=== PATIENT | male | born 1955 | race Caucasian/White ===

== ENCOUNTER 2020-12-15 14:08 | Day surgery (SDC) | payer MEDICARE, SELFPAY ==
[~2020-12-15] VITALS: Ht 188 cm; Wt 107.1 kg
[~2020-12-15 14:08] MED LIST: ESOM20 PO; OMEP40CA12 PO; Ultram50 MG PO
== END 2020-12-15 16:35 | disposition home or self-care (01) ==
LOC: ORSCSDS 14:08
PROVIDERS: Surgery
PROC: 0DJD8ZZ Inspection of Lower Intestinal Tract, Via Natural or Artificial Opening Endoscopic (ICD-10-PCS; principal; 2020-12-15 15:30)
DX: Z12.11 Encounter for screening for malignant neoplasm of colon (principal); Z86.010 Personal history of colon polyps; E78.5 Hyperlipidemia, unspecified; K21.9 Gastro-esophageal reflux disease without esophagitis; Z86.73 Personal history of transient ischemic attack (TIA), and cerebral infarction without residual deficits; Z79.82 Long term (current) use of aspirin; Z79.899 Other long term (current) drug therapy; Z87.891 Personal history of nicotine dependence
CPT/HCPCS: J2704; J7120

== ENCOUNTER 2021-03-20 17:04 | Inpatient (IN) | payer MEDICARE, OTHER ==
[~2021-03-20] VITALS: Ht 188 cm; Wt 98.4 kg
[2021-03-20 18:40] LABS: BASOPHILS ABSOLUTE AUTO 0.01 K/mm3 (0.00-0.23); BASOPHILS PERCENT AUTO 0 % (0-2); EOSINOPHILS PERCENT AUTO 0 % (0-6); Hematocrit 49.4 % (37.0-53.0); Hemoglobin 16.6 g/dL (13.5-17.5); IMMATURE GRAN ABSOLUTE AUTO 0.06 K/mm3 (0.00-0.10); IMMATURE GRAN PERCENT AUTO 1 % (0-1); LYMPHOCYTES ABSOLUTE AUTO 0.88 K/mm3 (0.84-5.20); LYMPHOCYTES PERCENT AUTO 9 % (21-46); MONOCYTES ABSOLUTE AUTO 0.76 K/mm3 (0.16-1.47); MONOCYTES PERCENT AUTO 8 % (4-13); Mean Corpuscular HGB 28.9 pg (26.0-34.0); Mean Corpuscular HGB Conc 33.6 g/dL (31.5-36.5); Mean Corpuscular Volume 86 fL (80-100); Mean Platelet Volume 10.6 fL (9.1-12.4); NEUTROPHILS ABSOLUTE AUTO 8.39 K/mm3 (1.96-9.15); NEUTROPHILS PERCENT AUTO 83 % (41-73); Platelet Count 190 K/mm3 (150-400); RDW Standard Deviation 44.5 fL (35.1-46.3); Red Blood Cell Count 5.74 M/mm3 (4.30-5.90)
[2021-03-20 19:16] LABS: Alanine Aminotransfer (ALT/SGP 33 U/L (12-78); Albumin, Blood 2.9 g/dL (3.4-5.0); Albumin/Globulin Ratio 0.6 (0.8-1.8); Alk Phos 46 U/L (50-136); Anion Gap 7 mmol/L (6-16); Aspartate Aminotrans (AST/SGOT 33 U/L (12-37); Bilirubin, Total 0.8 mg/dL (0.1-1.0); Blood Urea Nitrogen 24 mg/dL (8-24); Bun/Creatinine Ratio 17.5 (12.0-20.0); CO2, Blood 24 mmol/L (21-32); Chloride, Blood 111 mmol/L (98-108); Creatinine, Blood 1.37 mg/dL (0.60-1.20); Globulin, Blood 4.6 g/dL (2.2-4.0); Glomerular Filtration Rate 55 (60-); Glucose, Blood 114 mg/dL (70-99); Potassium, Blood 4.1 mmol/L (3.5-5.5); Sodium, Blood 142 mmol/L (136-145); Total Protein, Blood 7.5 g/dL (6.4-8.2); Troponin I <0.015 ng/mL (0.000-0.040)
[2021-03-20] MEDS ORDERED: PANTOPRAZOLE SO40 M2 PO (20:02)
[2021-03-20] MEDS ORDERED: SYMBICORT 160-4.6 GM INH (20:03)
[2021-03-20] MEDS ORDERED: ALBU90OI INH (20:04)
[2021-03-20] MEDS ORDERED: ASPI325EC PO (20:15)
[2021-03-20] MEDS ORDERED: ASCO500 PO (20:15)
[2021-03-20] MEDS ORDERED: AZIT250 PO (21:11)
[2021-03-20] MEDS ORDERED: PRED20 PO (21:12)
--- NOTE | 2021-03-20 21:41 | NUR ---
ADMITTED 65 YR OLD MALE FROM THE ED TO THE FLOOR WITH DX OF COVID 19. ED STARTED HIM ON REMDESIVIR IV. ED REPORTED PT SOB WITH EVEN LITTLE PHYSICAL EXERTION. ASSISTED FROM STRETCHER TO BED.O2 AT 4L/NC. COUGHING. PLACED IN DROPLET ISOALTION. ORIENTED TO USE OF CALL LIGHT. CALL LIGHT IN REACH
--- NOTE | 2021-03-21 01:18 | NUR ---
RESTING QUIETLY, ASYMPTOMATIC AT THIS TIME. RECEIVED TREATMENT FROM RT EARLIER. O2 CONT AT 4L/MIN PER NC. CALL LIGHT IN REACH. ISOLATION PRECAUTIONS MAINTAINED.
--- NOTE | 2021-03-21 03:05 | NUR ---
CONTINUES TO REST QUIETLY WITH O2 AT 4L/MIN PER NC. CALL LIGHT IN REACH. ISOLATION PRECAUTIONS CONTINUE
--- NOTE | 2021-03-21 03:43 | NUR ---
SHIFT SUMMARY ADMITTED EARLIER IN THE SHIFT WITH RESP FAILURE DUE TO COVID 19. RESPS CONGESTED, EASILY TIRED WITH LITTLE PHYSICAL EXERTION. O2 AT 4L/NC. TREATMENT GIVEN EARLIER BY RT, RESTING QUIETLY AT THIS TIME, SINUS JOYCE. CALL LIGHT IN REACH. HAS BEEN RESTING QUIETLY WITH FEW INTERRUPTIONS SINCE HS. HEART RATE WHEN TELE FIRST APPLIED WAS 73, BUT DURING THE NIGHT TRENDED DOWN TO LOW 50'S. NO NOTED DISTRESS AT THIS TIME. WILL CONT TO MONITOR. DROPLET ISOLATION PRECAUTIONS CONTINUE
[2021-03-21 05:03] LABS: BASOPHILS ABSOLUTE AUTO 0.02 K/mm3 (0.00-0.23); BASOPHILS PERCENT AUTO 0 % (0-2); EOSINOPHILS PERCENT AUTO 0 % (0-6); Hematocrit 46.3 % (37.0-53.0); Hemoglobin 15.8 g/dL (13.5-17.5); IMMATURE GRAN ABSOLUTE AUTO 0.06 K/mm3 (0.00-0.10); IMMATURE GRAN PERCENT AUTO 1 % (0-1); LYMPHOCYTES ABSOLUTE AUTO 0.56 K/mm3 (0.84-5.20); LYMPHOCYTES PERCENT AUTO 6 % (21-46); MONOCYTES ABSOLUTE AUTO 0.47 K/mm3 (0.16-1.47); MONOCYTES PERCENT AUTO 5 % (4-13); Mean Corpuscular HGB 28.8 pg (26.0-34.0); Mean Corpuscular HGB Conc 34.1 g/dL (31.5-36.5); Mean Corpuscular Volume 85 fL (80-100); Mean Platelet Volume 10.4 fL (9.1-12.4); NEUTROPHILS ABSOLUTE AUTO 7.72 K/mm3 (1.96-9.15); NEUTROPHILS PERCENT AUTO 88 % (41-73); Platelet Count 190 K/mm3 (150-400); RDW Coefficient Variation 13.8 % (11.7-14.2); Red Blood Cell Count 5.48 M/mm3 (4.30-5.90); White Blood Cell Count 8.83 K/mm3 (4.00-11.30)
[2021-03-21 05:33] LABS: Anion Gap 6 mmol/L (6-16); Blood Urea Nitrogen 22 mg/dL (8-24); Bun/Creatinine Ratio 19.8 (12.0-20.0); CO2, Blood 22 mmol/L (21-32); Calcium, Blood 8.4 mg/dL (8.5-10.1); Chloride, Blood 109 mmol/L (98-108); Creatinine, Blood 1.11 mg/dL (0.60-1.20); Glomerular Filtration Rate >60 (60-); Glucose, Blood 127 mg/dL (70-99); Potassium, Blood 4.4 mmol/L (3.5-5.5); Sodium, Blood 137 mmol/L (136-145)
--- NOTE | 2021-03-21 16:56 | NUR ---
PATIENT IS ALERT AND ORIENTED AND COOPERATIVE WITH CARE. HE IS ON 6L O2 VIA HIGHFLOW NC. CONTINUOUS OXIMETRY IS IN PLACE. PATIENT TRANSFERRED TO THE BATHROOM TODAY, SOB ON EXERTION. HE WAS UP TO THE CHAIR FOR LUNCH. VSS. WILL CONTINUE TO MONITOR
--- NOTE | 2021-03-21 19:59 | NUR ---
ALERT AND ORIENTED. LUNG SOUNDS CONGESTED. DIMINISHED TO AUSCULTATION. SAUD LOSS OF FEELING. HOB AT 50 DEGREES. O2 PER NC AT 6L/MIN. ISOLATION PRECAUTIONS MAINTAINED. CALL LIGHT IN REACH
--- NOTE | 2021-03-22 01:46 | NUR ---
REMAINS ON CONTINUOUS PULSE OX AND MED TELE. NUCLEAR CHEMISTRY TECHNICIAN NOTIFIED NURSE OF HEART RATE (HR), DROPPING INTO THE 40'S. UPON ARRIVAL AT BEDSIDE, PT AWAKE, STATED HE "ROLLED OVER" AND WAS FEELING FINE. NOTE O2 SATS 90% AND HR INCREASING TO 53. DENIED ACUTE DISTRESS. ALERT AND ORIENTED. CALL LIGHT IN REACH. WILL CONTINUE TO MONITOR. NUCLEAR CHEMISTRY TECHNICIAN INSTRUCTED TO CALL IF HR DRPOS TO 45 AND/OR IF CONTINUES TO REMAIN IN THE 40'S.
--- NOTE | 2021-03-22 03:30 | NUR ---
O2 SATS DROPPED BELOW 88. O2 INCREASED TO 8 L/MIN PER NC. HEART RATE 53. O2 SATS INCREASED TO 90%. ASYMPTOMATIC. CALL LIGHT IN REACH. ISOLATION PRECAUTIONS CONTINUE. RT NOTIFIED. LUIS A CONT TO MONITOR
--- NOTE | 2021-03-22 03:44 | NUR ---
SHIFT SUMMARY HAS BEEN RESTING QUIETLY WITH OCCASIONAL INTERRUPTIONS SINCE HS. O2 SATS AND HEART RATE DROPPED DURING THE NIGHT. O2 HAS BEEN INCREASED TO 8 L/MIN PER NC. CURRENTLY O2 SATS 90%. MED TELE NOTIFIED NURSE OF JOYCE CARDIA - INTO THE MID 40'S. EACH TIME NURSE ASSESSED PT, PT APPEARED ASYMPTOMATIC, EVEN WOKE UP AND STATED HE WAS OK, AND THAT HE HAD JUST TURNED SELF AT THE TIME OF HR DROPPING. CURRENTLY O2 SATS 90% AND HR 53. WILL CONTINUE TO MONITOR. CALL LIGHT IN REACH. PT DENIES ACUTE DISTRESS.
--- NOTE | 2021-03-22 17:19 | NUR ---
SHIFT SUMMARY PATIENT DENIES PAIN, NAUSEA, AND SHORTNESS OF BREATH. DYSPNEIC WITH ACTIVITY. PATIENT ON HIGH FLOW O2 AT 10LPM NC. PATIENT SBA TO BATHROOM AND USES URINAL AT BEDSIDE. EATING AND DRINKING WELL. PLEASANT AND COOPERATIVE WITH CARE.
--- NOTE | 2021-03-22 22:04 | NUR ---
ASSUMPTION OF CARE. AOX3, SBA TO THE BATHROOM, USES URINAL AT BEDSIDE. LUNG SOUNDS ARE DIMINISHED, PRODUCTIVE COUGH WITH SMALL WHITE THIN SPUTUM, BREATHS VERY SHALLOW, PLEURAL PAIN MID CHEST WITH DEEP BREATHING, ENCOURAGE DEEP BREATHING FOR PREVENTION. ON 10L NC. NO EDEMA. SATS 90-96 AT TIMES. CONTINUOUS PULSE OX IN PLACE. NO NEEDS NOTED. CALL LIGHT IS IN REACH.
--- NOTE | 2021-03-22 23:49 | NUR ---
Daughter called very concerned about her dad. She states he sometimes gets things confused and told her that he has something wrong with his heart. Gave her what information I had which was only the reading of the EKG. Will pass on to day shift to have doctor call.
--- NOTE | 2021-03-23 07:04 | NUR ---
SHIFT SUMMARY: AOX3. LUNG SOUNDS DIMINISHED. SHALLOW BREATHING, PAIN WITH DEEP BREATH TO LEFT UPPER CHEST. ENCOURAGED TO WORK THROUGH. SATS REMAINED 88-90% ON 10 LITERS, DROPPED TO 87% WHEN SLEEPING BUT NEVER SUSTAINED. DROPS WITH SLIGHTEST MOVEMENT OR EXERTION. JOYCE DOWN TO 49, SINUS ON TELE. VSS/AFEBRILE. IV PATENT. USES URINAL AT BEDSIDE. NO OTHER CHANGES TO REPORT. CALL LIGHT IN REACH.
--- NOTE | 2021-03-23 16:32 | NUR ---
SHIFT SUMMARY PATIENT DENIES PAIN, NAUSEA, AND SHORTNESS OF BREATH AT REST. SBA FOR LINE MANAGEMENT TO BATHROOM. PATIENT MAINTAINING O2 SATS ABOVE 90% ON HIGH FLOW O2 AT 10L NC. DESATURATES WITH ACTIVITY, BUT RECOVERS QUICKLY. EATING AND DRINKING WELL. PLEASANT AND COOPERATIVE WITH CARE. CRISTOBAL PITTS SPOKE WITH DAUGHTER REYNA TO GIVE UPDATE ON PATIENT STATUS.
--- NOTE | 2021-03-23 19:05 | NUR ---
ASSUMED CARE RECEIVED REPORT FROM CRISTOBAL PITTS. PT RESTING, IN NO ACUTE DISTRESS, CURRENTLY ON 1OL/HIGH-FLOW NC; RESPS E/U. DENIES NEEDS. CALL LIGHT, POSSESSIONS IN REACH.
--- NOTE | 2021-03-24 05:30 | NUR ---
MEDICAL SERVICE TECHNICIAN SUMMARY PT RESTING QUIETLY IN BED, VS REVIEWED, O2 SATS 90-92% ON 12L HFNC S/P COUGHING FIT, OTHER VS WNL. HAS BEEN ON 11L/HFNC T/O NIGHT, O2 SATS 90-91%. PT NOTED TO DE-SATURATE TO 84-85% POST COUGHING/EXERTION. REMINDED PT TO TAKE SLOW, DEEP BREATHS, DEMONSTRATED UNDERSTANDING. HAS BEEN SLEEPING T/O NIGHT. IN NAD AT THIS TIME. DENIES NEEDS. CALL LIGHT, POSSESSIONS IN REACH, BED IN LOW POSITION. WILL CONTINUE TO PROVIDE CARE UNTIL REPORT GIVEN TO ONCOMING RN.
--- NOTE | 2021-03-24 08:00 | NUR ---
PT STRUGGLING, IS SOB WITH TALKING AND ANY EXERTION. MOVED FROM 11 L O2 TO 13 TO KEEP AT 88-90%. PT SLIGHTLY RED AND WORKING HARD FOR AIR. CALLED RT. CHECKING FOR EAR PROBE AND NEW O2 SENSOR.
--- NOTE | 2021-03-24 08:30 | NUR ---
PT STABILIZING SOME. O2 UP TO 90% REFIXED O2 HUMIDIFIER. FOUND SOME SMALL LEAKAGE. REMOVED HUMIDIFIER. SATS IMPROVED SOME. TURNED DOWN TO 10 L O2. 0900 REPLACED HUMIDIFIER WITH NEW ONE. SATS NOW AT 94% ON 10 L. COLOR IMPROVING TO NORMAL, RESP EASY, UNLABORED. 1000 TURNED O2 DOWN TO 8L. PT NOW MAINTAINING AT 97-96%. RESP EASY, UNLABORED. COLOR RETURNED TO NORMAL. PT MUCH RELAXED.
--- NOTE | 2021-03-24 14:46 | NUR ---
PT RESTING EYES CLOSED RESP EASEY, UNLABORED. ON 8L O2 NOW. O2 97%
--- NOTE | 2021-03-24 18:00 | NUR ---
PT AMBULATED TO BATHROOM.. DESATTED TO 88, TKURNED UP TO 12 L TO GET OVER 90 DURING BATHROOM TRIP. IT TOOK A GOOD 15 MIN TO RECOVER TO 92-94%. ABLE TO TURN O2 DOWN TO 10L TO KEEP AT 94% NOW. WILL MONITOR AND TURN DOWN AGAIN APPROP
--- NOTE | 2021-03-24 19:07 | NUR ---
PT AMBULATED TO BATHROOM. PRESENTLY ON 9 L O2. SATTING 93+%. PT COUNTENANCE IMPROVED T/O DAY. RESP EASY, UNLABORED.
--- NOTE | 2021-03-24 22:00 | NUR ---
ASSUMED CARE. DONNA REPORTS HE IS DOING BETTER TODAY. FEELS LIKE HE CAN TAKE A DEEP BREATH WITH OUT IT HURTING BAD. HE IS ABLE TO MOVE MORE WITHOUT HIS SATS DROPPING. ON 9 LITERS AND HOLDING ABOVE 90% OCCATIONAL DROPS DOWN TO 88%. LUNG SOUNDS ARE FINE CRACKLES ON THE RIGHT SIDE. LEFT IS CLEAR. ENCOURAGED DEEP BREATHING. WILL CONTINUE TO MONITOR. CALL LIGHT WITH IN REACH.
[2021-03-25 04:48] LABS: Base Excess Venous 2.6 mmol/L; Bicarbonate Venous 26.6 mmol/L (24.0-30.0); PCO2 Venous 39.1 mmHg (38-42); PO2 Venous 90.2 mmHg (38-42); pH Blood Venous 7.44 (7.34-7.37)
--- NOTE | 2021-03-25 04:59 | NUR ---
SHIFT SUMMARY: LUNG SOUNDS CRACKLES ON THE RIGHT SIDE, CLEAR ON LEFT. SOB IMPROVED SLIGHTLY WITH MOVEMENT AND TALKING. ABLE TO MAKE SLIGHT MOVEMENTS WITH OUT SATS DROPPING. ON 8 LITERS WHILE AWAY. DURING SLEEP HE HELD 8 LITERS TILL 0200 WHEN HE DROPPED TO 85% AND HELD. INCREASED TO 12 LITERS AND HAD HIM REPOSITION. STILL HAVING OCCATIONAL DROPS TO 87% BUT IS ABLE TO GET IT BACK UP. COUGH PRODUCTIVE WITH WHITE SPUTUM. NO EDEMA. PLEURAL PAIN ON LEFT SIDE IMPROVED, ABLE TO TAKE DEEP BREATH WITH OUT PAIN. STATS IS BREATHING EASIER. PO2 IN 90'S. PCO2 NORMAL. VSS/AFEBRILE. WILL CONTINUE TO MONITOR. CALL LIGHT IN REACH.
[2021-03-25 05:19] LABS: BASOPHILS ABSOLUTE AUTO 0.03 K/mm3 (0.00-0.23); BASOPHILS PERCENT AUTO 0 % (0-2); EOSINOPHILS ABSOLUTE AUTO 0.01 K/mm3 (0.00-0.68); EOSINOPHILS PERCENT AUTO 0 % (0-6); Hematocrit 47.1 % (37.0-53.0); Hemoglobin 15.9 g/dL (13.5-17.5); IMMATURE GRAN ABSOLUTE AUTO 0.26 K/mm3 (0.00-0.10); IMMATURE GRAN PERCENT AUTO 2 % (0-1); LYMPHOCYTES ABSOLUTE AUTO 1.14 K/mm3 (0.84-5.20); LYMPHOCYTES PERCENT AUTO 8 % (21-46); MONOCYTES ABSOLUTE AUTO 0.84 K/mm3 (0.16-1.47); MONOCYTES PERCENT AUTO 6 % (4-13); Mean Corpuscular HGB 28.7 pg (26.0-34.0); Mean Corpuscular HGB Conc 33.8 g/dL (31.5-36.5); Mean Corpuscular Volume 85 fL (80-100); Mean Platelet Volume 10.7 fL (9.1-12.4); NEUTROPHILS ABSOLUTE AUTO 12.03 K/mm3 (1.96-9.15); NEUTROPHILS PERCENT AUTO 84 % (41-73); Platelet Count 247 K/mm3 (150-400); RDW Coefficient Variation 13.6 % (11.7-14.2); RDW Standard Deviation 42.2 fL (35.1-46.3); Red Blood Cell Count 5.54 M/mm3 (4.30-5.90); White Blood Cell Count 14.31 K/mm3 (4.00-11.30)
[2021-03-25 05:37] LABS: Alanine Aminotransfer (ALT/SGP 41 U/L (12-78); Albumin, Blood 2.5 g/dL (3.4-5.0); Albumin/Globulin Ratio 0.6 (0.8-1.8); Alk Phos 46 U/L (50-136); Anion Gap 4 mmol/L (6-16); Aspartate Aminotrans (AST/SGOT 26 U/L (12-37); Bilirubin, Total 0.5 mg/dL (0.1-1.0); Blood Urea Nitrogen 21 mg/dL (8-24); Bun/Creatinine Ratio 24.2 (12.0-20.0); CO2, Blood 27 mmol/L (21-32); Calcium, Blood 8.7 mg/dL (8.5-10.1); Chloride, Blood 105 mmol/L (98-108); Creatinine, Blood 0.87 mg/dL (0.60-1.20); Globulin, Blood 4.2 g/dL (2.2-4.0); Glomerular Filtration Rate >60 (60-); Glucose, Blood 127 mg/dL (70-99); Potassium, Blood 4.4 mmol/L (3.5-5.5); Sodium, Blood 136 mmol/L (136-145); Total Protein, Blood 6.7 g/dL (6.4-8.2)
--- NOTE | 2021-03-25 11:20 | NUR ---
PT IS PLEASANT TODAY. IN GOOD SPIRITS. STATES FEELS IMPROVING. WANTS TO TAKE SHOWER. FEELS STRONG ENOUGH. O2 DOWN TO 8-9 L NEED. TO TAKE SHOWER, I TURNED UP TO 12L. HAVE TO REMOVE O2 SENSOR, WATCHED PT DURING SHOWER TO MONITOR IF GASPING OR STRUGGLING. HE SHOWED ONLY MILD SIGNS OF BEING SOB. PT AMBULATED BACK TO CHAIR AFTER SHOWER. O2 SATS AT 88-90 ON 12 L WHICH IMPROVED IN JUST A FEW MIN. TURNED DOWN TO 10 L WHEN RECOVERED, WAS ABLE TO TURN DOWN TO 8 L AT THIS TIME. HE IS CURRENTLY MAINTAINING 93-94% ON 8 L SITTING IN CHAIR. PT CALM, RESP EASY, UNLABORED.
--- NOTE | 2021-03-25 14:12 | NUR ---
PT AT 94-95% ON 8 L. TURNED DOWN TO 6L, O2 SATS HOLDING 92-93%. WILL CONTINUE TO MONITOR AND TURN DOWN APPROP
--- NOTE | 2021-03-25 18:34 | NUR ---
PT PLEASANT TODAY. HAVE BEEN ABLE TO MOVE O2 DOWN TO 6L . SATS 92+%. RESP EASY, UNLABORED. DID DESAT FOR TALKING OR AMBULATION. HE DID TAKE SHOWER . NO MONITOR, PLACED O2 AT 12 DURING SHOWER. HE TOLERATED SSHOWER WELL. NO NEW CONCERNS NOTED TOAMILCARA. BED IN LOW POSITION, CALLITE IN REACH, CALLS APPROP
--- NOTE | 2021-03-26 04:20 | NUR ---
SHIFT SUMMARY NO ACUTE CHANGES THIS SHIFT, NO C/O ANY KIND, 5L O2 T/O SHIFT DESATTING IN LOW 80'S WHEN USING URINAL AT BEDSIDE, PT ABLE TO RECOVER W/IN MINUTES AND RETAIN SATS T/O THE NIGHT, SLEEPING AT THIS TIME, CALL LIGHT IN REACH, WILL CONT TO MONITOR UNTIL REPORT GIVEN TO DAY RN.
--- NOTE | 2021-03-26 09:30 | NUR ---
PT PLEASANT COOP A/O. DENIES PAIN. SOB WITH ANY EXERTION. PRESENTLY ON 5L AT REST. DO INCREASE TO 8-10 TO GO TO BATHROOM. RECOVERING IN COUPLE MIN. H/R REG, NO MURMER NOTED. PER TELE S JOYCE AT 58 BBB. LUNGS CLEAR THIS AM. ABOVE, ON 5L O2 AT REST. COLOR IMPROVED. RESP EASY, UNLABORED. EXCEPT AT EXERTION. BT X4 LAST BM YEST. VOIDS URINAL AND SBA TO BATHROOM. BED IN LOW POSITION, CALL LITE IN REACH, CALLS APPROP. PT IS TALKATIVE, PLEASANT O2 DROPS SOME WITH TALKING. NO NEW CONCERNS NOTED.
--- NOTE | 2021-03-26 11:31 | NUR ---
PT AMBULATED TO BATHROOM. BIOX ALARM. TURNED O2 UP TO 8L. NOW AT 96-98%. RECOVERED O2 IN 2-3 MIN. WILL TURN BACK TO 5 WHEN BACK TO BED.
--- NOTE | 2021-03-26 11:33 | NUR ---
VERBAL ORDER TO D/C LUIZA
--- NOTE | 2021-03-26 17:23 | NUR ---
PT DOING WELL TODAY. MADE IT TO BATHROOM WITH 8 L O2. ONLY SOME SOB. RETURNED TO CHAIR TO RECOVER. TURNED DOWN TO 5 L . NO GASPING OR HARD BREATHING, BUT PT MOVING SLOWLY TO CONSERVE. NO NEW CONCERNS NOTED. PT MOVING TO BED AND CHAIR DESIRES WITHOUT ASST. BED IN LOW POSITIOON, CALL LITE IN REACH, CALLS APPROP
--- NOTE | 2021-03-27 03:16 | NUR ---
SUMMARY: PT A/OX4, INDEPENDENT IN ROOM AND CALLS APPROPRIATELY TO SPECIFY NEEDS. HE CONT'S TO GET SOB W/EXERTION TO RESTROOM BUT RECOVERS QUICKLY AT REST. LS CLEAR AND SPO2 WNL ON 5L HUMIDIFIED O2, DESATS TO HIGH 80'S% WHEN SOB. HE'S BRADYCARDIC AT TIMES W/HR 50'S-70'S BPM PER CONT BIOX. NO ACUTE CHANGES, VSS/AFEBRILE. WCTM AND REPORT TO DAY RN.
--- NOTE | 2021-03-27 10:46 | NUR ---
STUDENT ASSESSMENT REVIEW I HAVE REVIEWED THE STUDENT'S ASSESSMENT, CONDUCTED MY OWN ASSESSMENT, AND I AGREE WITH THE STUDENT'S FINDINGS
--- NOTE | 2021-03-27 17:23 | NUR ---
SHIFT SUMMARY PATIENT A/0X4. INDEPENDENT IN ROOM. PATIENT CALLS APPROPRIATELY FOR NEEDS. PATIENT STILL GETS SHORT OF BREATH WITH EXERTION TO BATHROOM BUT RECOVERS QUICKLY. PATIENT IS ON 5L OXYGEN AND SATTING MID 90S AT REST AND DESATTING INTO THE MID 80S DURING EXERTION. NO ACUTE CHANGES THIS SHIFT. VITAL SIGNS REVIEWED.
--- NOTE | 2021-03-28 05:53 | NUR ---
SHIFT SUMMARY: PATIENT IS A&OX4, VSS, MAINTAINING SATS 88-93% ON 5L. DESATURATION OBSERVED WITH ANY ACTIVITY, INCLUDING TALKING. STANDS AT BEDSIDE TO VOID IN URINAL, INDEPENDTANLY. NO REPORTS OF PAIN OR DISCOMFORT. DROPLET PRECAUTIONS ARE MAINTAINED, POSITIVE FOR COVID.
--- NOTE | 2021-03-28 18:25 | NUR ---
SHIFT SUMMARY PT AXO, PLEASANT AND COOPERATIVE WITH CARE. SOB WITH EXERTION AND TALKING. 88% ON 5L. THIS NURSE TURNED UP 02 TO 6L WHILE PATIENT WAS SHOWERING, 93 % AFTER PT RECOVERED AFTER SHOWER. BACK DOWN TO 5L AT THIS TIME, STILL AT 90%. NO OTHER CHANGES THIS SHIFT. BED IN LOW POSITION, CALL LIGHT WITHIN REACH.
--- NOTE | 2021-03-28 18:32 | NUR ---
PT GAVE THIS STUDENT NURSE PERMISSION TO PROVIDE CARE ON 03/28/21.
--- NOTE | 2021-03-29 05:36 | NUR ---
SHIFT SUMMARY NO ACUTE CHANGES THIS SHIFT, NO C/O ANY KIND, CONTINUES ON 5L O2 VIA NC, SLEPTN T/O THE NIGHT & SLEEPING AT THIS TIME, CALL LIGHT IN REACH, WILL CONT TO MONITOR UNTIL REPORT GIVEN TO DAY RN.
--- NOTE | 2021-03-29 17:13 | NUR ---
PT IS A/OX3, PLEASANT AND COOPERATIVE, THE PT IS UP IND IN HIS ROOM, THE PT IS ON 4L/MIN O2 AT THIS TIME SPO2 87-91%, THE PT QUICKLY DE-SATS WITH MINIMAL EXCERTION, THE PT WAS UP IN THE SHOWER AND INTO THE CHAIR TODAY, THE PT DENIED ANY PAIN OR NAUSEA, CALL LIGHT IN REACH, WILL CONTINUE TO MONITOR AND ASSESS FOR CHANGES
--- NOTE | 2021-03-29 18:39 | NUR ---
PT GAVE THIS STUDENT NURSE PERMISSION TO PROVIDE CARE ON 03/29/21.
--- NOTE | 2021-03-30 06:48 | NUR ---
SHIFT SUMMARY NO ACUTE CHANGES THIS SHIFT, NO C/O ANY KIND, O2 SATS REMAIN 89-90% ON 4L O2 NEEDING 5L W/ACTIVITY, SLEPT WELL T/O THE NIGHT, UP WATCHING TV AT THIS TIME, ALL NEEDS MET, CALL LIGHT IN REACH, WILL CONT TO MONITOR UNTIL REPORT GIVEN TO DAY RN.
--- NOTE | 2021-03-30 16:50 | NUR ---
PT IS A/OX3, PLEASANT AND COOPERATIVE, THE PT IS UP IND IN HIS ROOM, PLAN WAS FOR THE PT TO DISCHARGE TODAY WITH OXYGEN, HOWEVER, HE NEDDED 11L/MIN O2 WITH ACTIVITY TO REACH 90% O2 SATS AND DID NOT RECOVER QUICKLY O2 AT REST WAS INCREASED TO 5L/MIN, THE PT OPTED TO STAY AT LEAST ANOTHER NIGHT, PTS BREATH SOUNDS WHERE CLEAR UPPER LOBES AND DECREASED IN LOWER LOBES ON OSCILLATION PER THIS RN, PT DENIED ANY PAIN OR NAUSEA, CALL LIGHT IN REACH WILL CONTINUE TO MONITOR AND ASSESS FOR CHANGES, PT WAS ENCOURAGED TO LAY PRONE TOLERATED
--- NOTE | 2021-03-31 04:26 | NUR ---
SUMMARY PT DENIES INCREASED SOB. PT HAD NO OTHER ISSUES NOTED. PT HAS SLEPT WELL T/O SHIFT. PT CURRENTLY SLEEPING IN NO DISTRESS. CALL LIGHT IN REACH.
--- NOTE | 2021-03-31 17:53 | NUR ---
a+o, isolated for covid, trouble keeping 02 level above 90%, currently at 10L while he is eating dinner, will continue to monitor and adjust as appropriate, have informed dr and rt as well as tried different ways of monitoring, continues to be alert and deny sob even when o2 levels are low, will share bsr with noc nurse and pt, no acute changes noted during shift
--- NOTE | 2021-04-01 05:08 | NUR ---
SHIFT SUMMARY A/O, ABLE TO MAKE NEEDS KNOWN. COOPERATIVE WITH CARE. CALLS AND ANSWERS QUESTIONS APPROPRIATELY. NO C/O PAIN/DISCOMFORT. INDEPENDENT IN ROOM. HAS REMAINED ON 8L VIA HF NC T/O THE NIGHT. NO ISSUES WITH DE-SATURATION. CONT BIOX REMAINS IN PLACE. NOTED THAT DE-SATURATION HAPPENS MOSTLY WHEN PATIENT IS ERECT. WHILE LAYING HAS LESS ISSUE MAINTAINING SATRUATION. LS VERY DIMINISHED AT THE BASES. VSS/AFEBRILE. APPEARED TO REST WELL OVERNIGHT. NO ACUTE CHANGES NOTED OVERNIGHT. BED IN LOWEST POSITION. CALL LIGHT AND BELONGINGS WITHIN REACH. CONTINUE WITH CURRENT PLAN OF CARE. REPORT TO ONCOMING RN.
--- NOTE | 2021-04-01 11:35 | NUR ---
o2 at 8L at bsr, oximeter showed 95% so lowered and monitored until got 02 down to 3L at 90+, rt worked with pt and tried a mask and pt sitting up in a chair, currently pt sitting up with mask 3L flow rate and oximeter at 93%, pt states he has not felt sob all day today, rt recommend steroid nasal spray, dr said he would write prescription, will continue to monitor and treat until share bsr with noc nurse
--- NOTE | 2021-04-01 18:37 | NUR ---
a+o, still trouble breathing, top of lungs clear but little movement heard in bases, rt tried a mask with saline also requested order for steroids for nasal spray, pt states the are working but no change in 02 required to keep stats above 90, still at 7L and 90% but pt is sitting up eating and stats tend to drop with either activity, iv infusing with no s/sx of infection or infiltration, will continue to monitor and treat until share bsr with noc nurse and pt
--- NOTE | 2021-04-02 04:37 | NUR ---
SHIFT SUMMARY A/O, ABLE TO MAKE NEEDS KNOWN. COOPERATIVE WITH CARE. CALLS AND ANSWERS QUESTIONS APPROPRIATELY. NO C/O PAIN/DISCOMFORT. INDEPENDENT IN ROOM. REMAINED ON SUPPLEMENTAL O2 OVERNIGHT VIA MASK; STATES HELPS WITH DRY NARES. NO ACUTE CHANGES NOTED OVERNIGHT. APPEARED TO REST WELL OVERNIGHT. BED REAMINED IN LOWEST POSITION. CALL LIGHT AND BELONGINGS WITHIN REACH. CONTINUE WITH CURRENT PLAN OF CARE. REPORT TO ONCOMING RN.
--- NOTE | 2021-04-02 18:36 | NUR ---
continues to have a challenge keeping 02 above 90%, currently at 10L via mask, rt worked with pt and he denies any sob, continues to express difficulty breathing through sinuses, states he feels better than he has since he came into the hospital, will continue to monitor and treat until share bsr with noc nurse and pt, saline locked, sitting up eating dinner watching tv, no acute changes noted during shift
--- NOTE | 2021-04-03 04:16 | NUR ---
SHIFT SUMMARY A/O, ABLE TO MAKE NEEDS KNOWN. COOPERATIVE WITH CARE. CALLS AND ANSWERS QUESTIONS APPROPRIATELY. NO C/O PAIN/DISCOMFORT. INDEPENDENT IN THE ROOM. CONTINUES TO REQUIRE 7-8L VIA HF NC. STATES FEELING MUCH BETTER. NO ACUTE CHANGES NOTED OVERNIGHT. APPEARED TO REST MUCH OF THE NIGHT. BED REMAINED IN LOWEST POSITION. CALL LIGHT AND BELONGINGS WITHIN REACH. CONTINUE WITH CURRENT PLAN OF CARE. REPORT TO ONCOMING RN.
--- NOTE | 2021-04-03 18:38 | NUR ---
SUMM- PT A/O X4. INDEPENDANT IN ROOM. AMBULATES TO BATHROOM. HAD A SHOWER. DESATS/DYSPNIC ON EXERTION. MISTED O2 6-10L INCREASED WITH ACTIVITY. SATS LOW 90'S. LOW 82%, SLOWLY RECOVERS WITH INACTIVITY AND NO TALKING. LUNGS DIM. T.O. TOLERATING FOOD AND FLUIDS. DR PATEL DISCUSED PT GOING HOME WITH O2 AND NEBS VS STAYING HOME, PT AGREES AND PLAN TO KEEP IN HOSP UNTIL IMPROVEMENT SEEN.
--- NOTE | 2021-04-04 05:04 | NUR ---
SHIFT SUMMARY: VSS. AFEB. 02 92% ON 7L VIA NC OR VENTIMASK. PT DESATS TO MID 80'S W/ ANY EXERTION AND WHEN TALKING. EXERTIONAL DYSPNEA. LSCTA W/DIM BASES. PT REPORTS IMPROVED NASAL CONGESTION. OCCASIONAL COUGH, NON-PRODUCTIVE. NO ACUTE OVERNIGHT EVENTS. WCTM.
--- NOTE | 2021-04-04 06:41 | NUR ---
PT OBSERVED TO DESAT TO 68% ON 10L W/ ACTIVITY. PT RESTING AFTERWARD, DEEP BREATHING, LAYING ON L SIDE W/ HI FLOW NASAL CANNULA IN NARES AND HOLDING VENTIMASK OVER HIS MOUTH, BOTH SET TO 10L/MIN. SATS VERY SLOWLY UP TO 90% OVER SEVERAL MINUTES. ENCOURAGED PT TO LAY PRONE, HE REFUSES, STATING HE HASN'T NOTICED THAT POSITION HELPED WHEN HE'S TRIED IT BEFORE. LS DIM. EQUAL CHEST RISE. RT CONTACTED DUE TO 02 SAT TAKING LONGER TO RETURN TO NORMAL RANGE.
[2021-04-04 08:23] LABS: Hematocrit 46.4 % (37.0-53.0); Hemoglobin 15.6 g/dL (13.5-17.5); Mean Corpuscular HGB 28.9 pg (26.0-34.0); Mean Corpuscular HGB Conc 33.6 g/dL (31.5-36.5); Mean Corpuscular Volume 86 fL (80-100); Mean Platelet Volume 10.8 fL (9.1-12.4); Platelet Count 204 K/mm3 (150-400); RDW Coefficient Variation 13.9 % (11.7-14.2); RDW Standard Deviation 43.8 fL (35.1-46.3); White Blood Cell Count 23.28 K/mm3 (4.00-11.30)
[2021-04-04 08:50] LABS: Anion Gap 6 mmol/L (6-16); Blood Urea Nitrogen 20 mg/dL (8-24); Bun/Creatinine Ratio 16.4 (12.0-20.0); CO2, Blood 29 mmol/L (21-32); Calcium, Blood 9.6 mg/dL (8.5-10.1); Chloride, Blood 101 mmol/L (98-108); Creatinine, Blood 1.22 mg/dL (0.60-1.20); Glomerular Filtration Rate >60 (60-); Glucose, Blood 117 mg/dL (70-99); Sodium, Blood 136 mmol/L (136-145)
--- NOTE | 2021-04-04 12:38 | NUR ---
Telephone report received from Deisy Tucker RN at this time. Anticipate arrival of pt to PCU 7 from [facility] shortly.
--- NOTE | 2021-04-04 13:22 | NUR ---
Rec'd pt to PCU7 and placed on Airvo. Oxygen needs at present to keep spo2 90% are: 79% oxygen delivery at 45 l/min via heated, hi flow oxygen delivery AirVo. Pt is not in distress, he states that he is not in pain. States his breathing got bad overnight. Fine crackles are noted especially on the right side more than on the left. He is able to carry on conversation at rest at this time with some mild shortness of breath.
--- NOTE | 2021-04-04 13:28 | NUR ---
TRANSFER PT TRANSFERRED TO PCU7 VIA BED. THIS RN CALLED REPORT TO CRISTOBAL MELCHOR. BELONGINGS WITH PT.
--- NOTE | 2021-04-04 13:55 | NUR ---
monitor car operator tech called to tell me pt is in sinus rhythm at 86 bpm, but that over the past hour he was in bigeminal PACs with sinus rhythm.
--- NOTE | 2021-04-04 15:06 | NUR ---
Notified by Olivia Sterling that the pt's heart rate was 130s and appeared to be atrial fibrillation. Strips reviewed with [employer] and put into pt's chart record. Call to Dr. Cedeño to notify him of the changes. new orders were put in by the doctor. Vital signs are stable, and the pt has no symptoms noted by him, and has converted back to normal sinus rhythm.
--- NOTE | 2021-04-04 19:27 | NUR ---
Call to the pt's , to answer her questions, at the pt's request. She is asking if he has been tested again for covid, and if she can visit. She also asked that if he takes a turn for the worse, would she get a phone call. i told her yes. She will call tomorrow and talk to the charge account authorizer.
[2021-04-05 04:10] LABS: Anion Gap 6 mmol/L (6-16); Blood Urea Nitrogen 32 mg/dL (8-24); Bun/Creatinine Ratio 29.6 (12.0-20.0); CO2, Blood 27 mmol/L (21-32); Calcium, Blood 9.1 mg/dL (8.5-10.1); Chloride, Blood 99 mmol/L (98-108); Creatinine, Blood 1.08 mg/dL (0.60-1.20); Glomerular Filtration Rate >60 (60-); Glucose, Blood 150 mg/dL (70-99); Potassium, Blood 3.8 mmol/L (3.5-5.5); Sodium, Blood 132 mmol/L (136-145)
--- NOTE | 2021-04-05 05:11 | NUR ---
shift summary pt rested some through night. alert and oriented - able to make needs known. cooperative with plan of care. sats ranging from high 80%'s-low 90%'s on 45l 80% on airvo. tele was running nsr until about 2250, at which point he converted to afib rvr, sustaining 140's. md ordered to give dilt bolus and start dilt gtt. pt still runing afib, but rate better controlled, averaging 90's to 110's. voiding to urinal at bedside, bsc for bm x1. no c/o pain. vss. call light within reach, bed in lowest position. will continue to monitor.
--- NOTE | 2021-04-05 08:51 | NUR ---
0830 Pt is hypoxic 82-85% at rest while lying in bed, HOB elevated 80%. Dr Cedeño here to see the pt. Oxygen via air vo increased to 91% Fio2, 45 l/min flow and spo2 improved to 86-87%. The pt states that he would like to have intubation if that is neccessary, because "if I dies on ventilator at least I wouldn't be struggling to breathe". RT called and breathing tx will be given now. RR is 29/minute. He is able to take his pills by mouth, slowly but doesn't have the strength or energy to eat his breakfast. Lungs are diminished throughout, anterior and posterior, with crackles throughout. Dr. Cedeño states he is consulting pulmonology this morning. Notifed by [facility] that the pt has converted to sinus rhythm; cardizem gtt was turned off and oral metoprolol was given at this time.
--- NOTE | 2021-04-05 11:03 | NUR ---
1000 Pt stated he was ready to be assisted into proning position. Pillows repositioned, pt was able to reposition with just minimal assistance, spo2 ranging from 84-86% during the activity. Call light placed within reach to his right hand. Plan today is for and kids to come in at 2 :30 pm and have conversation with pt and palliative care RN Alden regarding plan of care, code status. 1100 Pt is proning still, appears to be sleeping, spo2 89% still on the same AirVo settings as before, 91% o2 and 45 l/min flow.
[2021-04-05 11:11] LABS: SARS COV-2 IGM AB Positive (Negative)
--- NOTE | 2021-04-05 12:00 | NUR ---
Dr. Miller was here to see the patient, for consultation. It was decided that the pt would be best taken care of in ICU in case the need for intubation should arise. the pt was put on ICU bed in PCU 7, 100% non rebreather mask put on, and pt was transported to ICU 11 and bedside report given to Billie Kidd RN. Amee was brought to the room by RT Agnes following transfer. Pt was alert, oriented, and conversant, but tachypneic and dyspneic with activity, even minimal.
--- NOTE | 2021-04-05 12:56 | NUR ---
PT ARRIVAL... PT ARRIVED ON UNIT AT 1230. BEDSIDE REPORT GIVEN BY RUIZ JAIN FROM PCU. PT WAS ON NON-REBREATHER AT 15L WITH O2 SATS AT 87%-89%. AIRVO WAS BROUGHT INTO THE ROOM, TURNED ON AND PLACED ON THE PT AT 55l AND 90%FIO2. PT'S O2 SATS ON THE AIRVO WITH THOSE SETTINGS HAVE BEEN 86%-90% PT'S BP SOFT BUT STABLE AT THIS TIME WITH SBP 90'S-100'S. HR STABLE, PT IS IN SR W/BBB AND OCC PVCs IN THE 60'S-70'S. PER REPORT PT WAS IN AFIB BUT CONVERTED AT SOME POINT TODAY. NO SWELLING OR EDEMA NOTED ON ASSESSMENT. L/S CLEAR AND DIM T/O. RR EVEN UNLABORED 20-26. BT PRESENT AND HYPERACTIVE, ABD IS SOFT AND NONTENDER TO PALP. PT'S RIGHT FOOT AND CALF ARE PALE AND COLD TO THE TOUCH BUT HAVE GOOD CAP REFIL PT'S LEFT LEG AND FOOT ARE PALE AND WARM TO THE TOUCH WITH GOOD CAP REFIL. PT'S DORSAL PEDIS PULSE ON THE LEFT LEG IS BOUNDING, THE DORSAL PEDIS PULSE ON THE RIGHT LEG IS STRONG. PT'S AND KIDS ARE COMING IN TO HAVE A MEETING WITH THE PT AND PALLIATIVE CARE TO DISCUSS CODE STATUS AND FURTHER TREATMENTS. PT IS VERY ANXIOUS ABOUT SUFFERING DURING THIS ILLNESS. WILL CONTINUE TO MONITOR.
--- NOTE | 2021-04-05 18:27 | NUR ---
SHIFT SUMMARY... NO ACUTE NEGATIVE CHANGES SINCE PT ARRIVAL. PT'S FAMILY CAME TO THE WINDOW, PT'S ATTITUDE HAS GREATLY IMPROVED SINCE SEEING HIS FAMILY THIS AFTERNOON. PT'S AIRVO SETTINGS HAVE INCREASED TO 60l AND 94% FIO2 WITH O2 SATS >89%. PT'S O2 SATS DROP DOWN TO 79% WITH ACTIVITY AND HE IS SLOW TO RECOVER AT TIMES. PT IS CONT OF URINE AND IS ABLE TO USE THE URINAL INDEPENDENTLY IN BED. PT WAS GIVEN A PARTIAL BED BATH AND SHAMPOO THIS AFTERNOON. PT WAS ABLE TO PRONE FOR APROX 1 HOUR BEFORE HE COULD NOT TOLERATE BEING ON HIS STOMACH ANYMORE. PT'S BP HAS BEEN SOFT BUT STABLE WITH SBPs 90'S-100'S. CALL LIGHT IN REACH WILL CONTINUE TO MONITOR.
--- NOTE | 2021-04-05 19:35 | NUR ---
ASSESSMENT/ASSUMED CARE PT SITTING UP IN BED WATCHING TV. A&O. ANSWERING QUESTIONS APPROP. SPEECH CLEAR AND APPROP. SOB NOTED WITH ACTIVITY AND TALKING. LUNGS CLEAR BUT DECREASED ON AIRVO AT 60 LITERS AND 94%. RT AT BEDSIDE. HEART RATE REGULAR. DENIES PAIN OR DISCOMFORT. STATES,"I FEEL GOOD RIGHT NOW, NO PAIN AT ALL". DRY NONPRODUCTIVE COUGH NOTED. NO EDEMA. BT+ ABD SOFT AND NONTENDER. DENIES N/V. PT TAKING SIPS OF CLEAR LIQUIDS WITHOUT DIFFICULTY. IV TO LEFT WRIST WITH NS AT 15 ML/HR AND ANITBIOTIC INFUSING. SITE CLEAR, FLUSHES WITHOUT DIFFICULTY. IV TO RIGHT FOREARM SALINE LOCKED. ABLE TO DRAW BLOOD AND FLUSH WITHOUT DIFFICULTY. PT TURNED SELF OVER TO PRONE POSITION. SPO2 DOWN TO 80% WITH ACTIVITY THAN BACK UP TO 90% WITH REST. CALL LIGHT WITHIN REACH.
--- NOTE | 2021-04-05 21:12 | NUR ---
CPAP PT UNPRONED SELF. REQUESTING OFF AIRVO DUE TO NOSE BLEED. RT PLACED PT ON CPAP 12 FIO2 100%. PT TOLERATING WELL. CALL TO DR FERREIRA FOR ORDER BIPAP/CPAP.
--- NOTE | 2021-04-05 23:26 | NUR ---
REASSESSMENT PT TAKEN OFF CPAP AND PLACED ON AIRVO VIA THE V60 AT 80 LITERS AND 100%. SPO2 ON AIRVO 91-92%. LUNGS CLEAR BUT DECREASED. PT DID ORAL CARE AND USED THE URINAL WITHOUT ASSIST. PT TURNED SELF TO LEFT WITH HOB UP. PT STATED,"I DON'T WANT TO TURN ON MY STOMACH, THAT IS HARD ENOUGH TO DO DURING THE DAY. I CAN LAY ON MY SIDE FOR HOURS WITHOUT A PROBLEM".
[2021-04-06 03:30] LABS: Hemoglobin 15.3 g/dL (13.5-17.5); Mean Corpuscular HGB 29.3 pg (26.0-34.0); Mean Corpuscular HGB Conc 34.8 g/dL (31.5-36.5); Mean Corpuscular Volume 84 fL (80-100); Mean Platelet Volume 11.4 fL (9.1-12.4); Platelet Count 206 K/mm3 (150-400); RDW Coefficient Variation 13.8 % (11.7-14.2); RDW Standard Deviation 42.5 fL (35.1-46.3); Red Blood Cell Count 5.23 M/mm3 (4.30-5.90); White Blood Cell Count 24.15 K/mm3 (4.00-11.30)
[2021-04-06 03:50] LABS: Bun/Creatinine Ratio 32.8 (12.0-20.0); Creatinine, Blood 1.34 mg/dL (0.60-1.20); Magnesium, Blood 2.4 mg/dL (1.6-2.4); Phosphorus, Blood 4.6 mg/dL (2.5-4.9); Potassium, Blood 3.8 mmol/L (3.5-5.5)
--- NOTE | 2021-04-06 05:17 | NUR ---
SHIFT SUMMARY PT RESTING QUIETLY DURING THE NIGHT. TURNING AND MOVING SELF IN BED. PRONE SELF ONCE FOR 45 MIN. PT USING V60 FOR CPAP 12 FIO2 100% OR AIRVO 80 LITERS FIO2 100%, TO KEEP SPO2 >88%. CURRENTLY ON AIRVO. AFTER CHANGING TO V60 PT HAVING LESS OF A DROP IN HIS SPO2 WITH ACTIVITY AND TALKING. BEFORE THE CHANGE SPO2 WOULD DROP TO LOW TO MID 80'S, AFTER CHANGING TO V60 SPO2 ONLY DOWN TO LOW 90'S WITH ACTIVITY AND TALKING. WHEN ON ROOMAIR SPO2 DOWN TO 60'S. HEART RATE SINUS JOYCE IN THE 50'S. BP STABLE. REPORT TO ON COMING NURSE
--- NOTE | 2021-04-06 07:30 | NUR ---
PT A&OX4-DENIES PAIN. AFEBRILE. ECG SHOWS SR WITH BBB RATE 60'S. SBP TRENDING 110'S. LUNGS DIMINISHED IN THE BASES WITH FINE CRACKLES. OCCASIONAL COUGH PRODUCTIVE OF A MODERATE AMOUNT OF CLEAR SECRETIONS. SATS 88-92% ON AIRVO 80 LITERS/ FIO2 100%. EXERTIONAL DYSPNEA NOTED WITH MINIMAL EXERTION. PT TOLERATING CLEAR LIQUID DIET WELL. HE REPORTS THAT HE HAS NOT HAD A BM IN THE LAST COUPLE OF DAYS AND IS REQUESTING "MIRILAX" WILL REQUEST FROM HOSPITALIST LATER THIS AM. PT VOIDS VIA URINAL- LASIX DC'D BY DR. NG. SKIN INTACT-SCATTERED ECCHYMOSIS TO ABDOMEN-FROM LOVENOX INJECTIONS. PT STATES THAT HE WOULD LIKE TO PRONE LATER THIS AM AND IF O2 REQUIREMENTS ARE IMPROVED, HE WOULD LIKE TO ADVANCE DIET.
--- NOTE | 2021-04-06 08:46 | NUR ---
ASSISTED PT TO PRONE POSITION-STANDBY FOR LINES AND TUBES-TOLERATED WELL. CALL LIGHT WITHIN REACH.
--- NOTE | 2021-04-06 10:30 | NUR ---
PT REQUESTED TO RETURN TO SUPINE POSITION. STANDY BY ASSISTANCE GIVEN TO MANAGE LINES AND TUBES. PT REMAINS ON AIRVO-80 LITERS/ FIO2 100% MAINTAINS SATS>90%
--- NOTE | 2021-04-06 12:00 | NUR ---
GARRISON OLIVERA DRAWN AND SENT TO LAB. ECHO IN PROGRESS.
[2021-04-06 13:44] LABS: Vancomycin, Trough 31.7 ug/mL (5.0-10.0)
--- NOTE | 2021-04-06 14:00 | NUR ---
VANCO DOSE HELD PER PHARMACY-PT MED WITH MIRILAX FOR C/O CONSITPATION. PT OFFERED SPONGE BATH, LINEN CHANGE, AND TO GET OOB TO CHAIR-PT REQUESTS TO HAVE SPONGE BATH AND GET OOB TO BSC WHEN HE HAS TO HAVE A BM.PT WILL CALL FOR ASSIST PRN-CALL LIGHT WITHIN REACH.
--- NOTE | 2021-04-06 16:00 | NUR ---
PT REMAINS A&OX4. ABLE TO CALL APPROPRIATELY/COMMUNICATING NEEDS WELL. PT SPOUSE IN FOR VISIT. LUNGS DIMINISHED IN THE BASES-SATS>90% ON AIRVO 80 LITERS/FIO2 80%-HR TRENDING 50'S SB WITH BBB AND OCCASIONAL PAC'S. BP STABLE. PT CONTINUES TO TOLERATE CLEAR LIQUID DIET WELL. STILL NO BM SINCE MIRILAX GIVEN. ASSISTED PT TO PRONE POSITION-TOLERATED WELL. CALL LIGHT WITHIN REACH-PT WILL CALL WHEN READY TO RETURN TO SUPINE POSITION.
--- NOTE | 2021-04-06 19:30 | NUR ---
ASSESSMENT/ASSUMED CARE PT SITTING UP IN BED WATCHING TV. MOVING SELF AROUND IN BED. DENIES PAIN OR DISCOMFORT. PT STATES,"NO CHANGE IN MY REATHING FROM LAST NIGHT". LUNGS CLEAR BUT DECREASED. PT ON AIRVO VIA V60 WITH 80 LITERS AND 80%. DRY COUGH. NO NOSE BLEED THIS EVENING. HEART RATE REGULAR SINUS JOYCE WITH BBB IN THE 50'S. NO EDEMA. BT+ DENIES N/V. TAKING CLEAR LIQUIDS WITHOUT DIFFICULTY. IV 20G TO LEFT WRIST WITH NS AT 15 ML/HR, SITE CLEAR. IV 20G TO RIGHT WRIST SALINE LOCKED, SITE CLEAR. FLUSHED WITHOUT DIFFICULTY.
[2021-04-07 04:04] LABS: Hematocrit 43.7 % (37.0-53.0); Mean Corpuscular HGB 28.7 pg (26.0-34.0); Mean Corpuscular HGB Conc 34.3 g/dL (31.5-36.5); Mean Corpuscular Volume 84 fL (80-100); Mean Platelet Volume 11.5 fL (9.1-12.4); Platelet Count 225 K/mm3 (150-400); RDW Coefficient Variation 13.8 % (11.7-14.2); RDW Standard Deviation 42.6 fL (35.1-46.3); Red Blood Cell Count 5.22 M/mm3 (4.30-5.90); White Blood Cell Count 23.25 K/mm3 (4.00-11.30)
[2021-04-07 04:22] LABS: Anion Gap 5 mmol/L (6-16); Blood Urea Nitrogen 44 mg/dL (8-24); Bun/Creatinine Ratio 37.3 (12.0-20.0); CO2, Blood 29 mmol/L (21-32); Calcium, Blood 9.2 mg/dL (8.5-10.1); Chloride, Blood 101 mmol/L (98-108); Creatinine, Blood 1.18 mg/dL (0.60-1.20); Glomerular Filtration Rate >60 (60-); Glucose, Blood 122 mg/dL (70-99); Potassium, Blood 4.9 mmol/L (3.5-5.5); Sodium, Blood 135 mmol/L (136-145)
--- NOTE | 2021-04-07 06:14 | NUR ---
SHIFT SUMMARY PT SITTING UP IN BED WATCHING TV. SLEPT THRU THE NIGHT. TURNING AND MOVING SELF IN BED. PT CONT ON V60 HIFLOW AT 80 LITERS AND 80%. DECREASED TO 75% FOR 6HRS BUT BACK UP TO 80%. PT CONT TO DROP ON SAT WITH ACTIVITY AND SPEECH. HEART RATE CONT IN THE 50'S DURING THE NIGHT. BP STABLE. POWER GLIDE PLACED TO LEFT UPPER ARM. PT REFUSED TO PRONE DURING THE NIGHT BUT DID TURN SIDE TO SIDE WHILE SLEEPING. REPORT TO ON COMING NURSE
--- NOTE | 2021-04-07 08:00 | NUR ---
PT IS A&OX4-DENIES PAIN. VS WDL. LUNGS DIMINISHED TO BASES WITH FINE CRACKLES. SATS>90% ON AIRVO 80 LITERS/ FIO2 80%. DYSPNEA AND TACHYPNEA WITH MINIMAL EXERTION. COUGH PRODUCTIVE OF SMALL AMOUNT OF THICK, CLEAR SECRETIONS. PT TOLERATING SMALL AMOUNTS OF CLEAR LIQUIDS WELL. APPETITE POOR. PT STILL HAS NOT HAD A BM-MED WITH MIRILAX-SEE EMAR. VOIDING ADEQUATE AMOUNT OF YELLOW URINE TO URINAL PRN. PT ABLE TO MOVE HIMSELF IN THE BED AND MAKES NEEDS KNOW. CALL LIGHT PLACE WITHIN PT REACH. PLAN TO GET PT OOB TO BSC LATER THIS AM. WILL SHAMPOO HIS HAIR, BATHE, AND CHANGE LINENS AT THAT TIME PER PT REQUEST.
--- NOTE | 2021-04-07 10:00 | NUR ---
PT MAINTAINING SATS>90% ON AIRVO 80 LITERS/FIO2 80% SITTING UP IN CHAIR. PT DENIES COMPLAINTS AT THIS TIME. DISCUSSED WITH PT THE CONCERN THAT PT ISN'T GETTING ADEQUATE NUTRITION. DIETARY AND DR. MILLARD SUGGESTED PLACEMENT OF DOBHOFF TUBE FOR NUTRITION. PT REFUSES DOBHOFF AT THIS TIME. PT STATES THAT HE WOULD PREFER IV NUTRITION AND THAT HE WILL ATTEMPT TO CONSUME MORE TODAY.
--- NOTE | 2021-04-07 12:00 | NUR ---
PT SITTING UP IN CHAIR FEEDING HIMSELF SOFT DIET WITHOUT NOTED DISTRESS AT THIS TIME. CALL LIGHT WITHIN REACH. PT WILL CALL FOR ASSIST PRN.
--- NOTE | 2021-04-07 12:30 | NUR ---
ASSISTED PT TO PRONE POSITION. TOELRATED WELL.FIO2 >90%
--- NOTE | 2021-04-07 13:45 | NUR ---
PT REQUESTED TO UNPRONE-REQUEST GRANTED. PT VERY DYSPNEIC WITH TURNING OVER IN BED-SATS DOWN TO 70'S. FIO2 TITRATED UP TO 100% AND AFTER 10 MINUTES OF REST, SATS RETURNED TO >94% AND FIO2 TITRATED DOWN TO 80%. CALL LIGHT WITHIN REACH. PT AWAITING A VISIT FROM HIS SPOUSE-WILL CALL FOR ASSIST PRN.
--- NOTE | 2021-04-07 16:00 | NUR ---
PT SITTING UP IN BED/CHAIR POSITION-VISITING WITH HIS WITHOUT NOTED DISTRESS. CLARE FROM RT AT BEDSIDE TITRATING DOWN FLOW AND FIO2-CURRENTLY, AT 70 LITERS/FIO2 70%.
--- NOTE | 2021-04-07 18:30 | NUR ---
CRISTOBAL ESTRADA ASSISTED PT TO PRONE POSITION. PT SATS TO 78% BRIEFLY, FIO2 TITRATED UP UNTIL SATS>90%-THEN RETURNED TO 60 LITERS/FIO2 70%. PT APPEARS TO BE RESTING QUIETLY-CALL LIGHT WITH IN REACH.
--- NOTE | 2021-04-07 20:41 | NUR ---
ASSUMPTION OF CARE PT ALERT AND ORIENTED, PT SELF PRONING NEEDING ASSISTANCE ONLY WITH LINES/CORDS, ON HIGH FLOW NASAL CANULA, SIGNIFICANT SHORTNESS OF BREATH AND INCREASED WOB WHEN PT WAS GOING FROM PRONE TO SUPINE, O2 SATURATIONS DECREASED TO 68%, HIGH FLOW INITIALY 60L AND 70%, TITRATED TO 80L AND 100% (SEE FLOWSHEET), PT SLOW TO RECOVER, CURRENT HIGH FLOW SETTINGS 60L AND 90%. PT DENIES SOB AT REST. MONITOR SHOWS SINUS RHYTHM WITH BBB, HR 70'S, BP STABLE HYPERTENSION WITH ACTIVITY. PT WITH QUESTIONS REGARDING LOVENOX DOSE AND FREQUENCY, DISCUSSED INCREASED RISK OF BLOOD CLOTS R/T COVID AND DECREASED MOBILITY/ACTIVITY, EDUCATED ON S/Sx OF BLOOD CLOTS IN EXTREMETIES. SKIN OVERALL IN TACT. PT WITH DECREASED APPETITE, RECEIVING IV NUTRITION, PT DENIES ISSUES, URINAL AT BEDSIDE WITHIN REACH. PT DENIES PAIN. CALL LIGHT WITHIN REACH, PT USING APPROPRIATELY.
[2021-04-08 04:33] LABS: PCO2 Arterial 38.3 mmHg (35-45); PO2 Arterial 56.7 mmHg (80-100); pH Blood Arterial 7.48 (7.35-7.45)
[2021-04-08 05:01] LABS: BASOPHILS ABSOLUTE AUTO 0.01 K/mm3 (0.00-0.23); BASOPHILS PERCENT AUTO 0 % (0-2); EOSINOPHILS ABSOLUTE AUTO 0.05 K/mm3 (0.00-0.68); EOSINOPHILS PERCENT AUTO 0 % (0-6); Hematocrit 41.1 % (37.0-53.0); Hemoglobin 14.2 g/dL (13.5-17.5); IMMATURE GRAN ABSOLUTE AUTO 0.13 K/mm3 (0.00-0.10); IMMATURE GRAN PERCENT AUTO 1 % (0-1); LYMPHOCYTES ABSOLUTE AUTO 1.04 K/mm3 (0.84-5.20); LYMPHOCYTES PERCENT AUTO 6 % (21-46); MONOCYTES ABSOLUTE AUTO 0.74 K/mm3 (0.16-1.47); MONOCYTES PERCENT AUTO 4 % (4-13); Mean Corpuscular HGB 29.2 pg (26.0-34.0); Mean Corpuscular HGB Conc 34.5 g/dL (31.5-36.5); Mean Corpuscular Volume 84 fL (80-100); Mean Platelet Volume 11.3 fL (9.1-12.4); NEUTROPHILS ABSOLUTE AUTO 14.72 K/mm3 (1.96-9.15); NEUTROPHILS PERCENT AUTO 88 % (41-73); Platelet Count 200 K/mm3 (150-400); RDW Coefficient Variation 13.8 % (11.7-14.2); RDW Standard Deviation 42.8 fL (35.1-46.3); Red Blood Cell Count 4.87 M/mm3 (4.30-5.90); White Blood Cell Count 16.69 K/mm3 (4.00-11.30)
[2021-04-08 05:38] LABS: Anion Gap 5 mmol/L (6-16); Blood Urea Nitrogen 39 mg/dL (8-24); Bun/Creatinine Ratio 36.8 (12.0-20.0); CO2, Blood 28 mmol/L (21-32); Calcium, Blood 8.6 mg/dL (8.5-10.1); Chloride, Blood 102 mmol/L (98-108); Creatinine, Blood 1.06 mg/dL (0.60-1.20); Glomerular Filtration Rate >60 (60-); Glucose, Blood 129 mg/dL (70-99); Magnesium, Blood 2.2 mg/dL (1.6-2.4); Phosphorus, Blood 2.8 mg/dL (2.5-4.9); Potassium, Blood 4.2 mmol/L (3.5-5.5); Sodium, Blood 135 mmol/L (136-145); Triglycerides 167 mg/dL (30-160); Vancomycin, Trough 19.4 ug/mL (5.0-10.0)
--- NOTE | 2021-04-08 06:23 | NUR ---
SHIFT SUMMARY PT RESTED THROUGHOUT SHIFT, REPORTS POOR SLEEP R/T CARE (REASSESSMENTS, LAB DRAWS, XRAY, ETC) PT REMAINS PLEASANT, CALM AND COOPERATIVE. HIGH FLOW NASAL CANULA TITRATED TO 60L AND 65% FIO2, O2 SATURATIONS 92-95% WHILE RESTING/ASLEEP BUT DECREASES TO 83-85% WITH MINIMAL ACTIVITY. RESPIRATORY RATE ALSO NOTABLY INCREASED WHILE AWAKE, RR WHILE SLEEPING 18-22, RR WHILE AWAKE 27-35. HR AND BP STABLE. NO GI/ ISSUES THIS SHIFT. CALL LIGHT WITHIN REACH, PT USING APPROPRIATELY.
--- NOTE | 2021-04-08 08:00 | NUR ---
AM NOTE... ASSUMED CARE OF PT AT 0700. PT IS A&Ox4 AND COVID +. PT IS ON AIRVO/HI FLOW AT 60/80%FIO2 WITH O2 SATS >90%. PT'S OTHER VS STABLE AT THIS TIME. L/S CLEAR T/O DIM WITH FINE CRACKLES NOTED IN THE BASES. RR WHILE ASLEEP WAS 18-20. RR WHILE AWAKE IS IN THE 30'S-38. BT PRESENT AND HYPERACTIVE, ABD IS SOFT AND NONTENDER TO PALP. NO EDEMA NOTED ON ASSESSMENT. PT HAS CLINIMIX RUNNING PER ORDERS. PT IS ABLE TO USE THE URINAL INDEPENDENTLY WHILE IN BED. CALL LIGHT IN REACH WILL CONTINUE TO MONITOR.
[2021-04-08 13:33] LABS: Source, Urine Catheter
[2021-04-08 13:44] LABS: Bilirubin, Urine Neg (Neg); Blood, Urine 2+ (Neg); Glucose Qualitative, Urine Neg (Neg); Ketones, Urine Neg (Neg); Leukocyte Esterase, Urine Neg (Neg); Nitrite, Urine Neg (Neg); Protein, Urine 1+ (Neg); Urobilinogen, Urine NORM (Normal)
[2021-04-08 13:46] LABS: PO2 Arterial 75.2 mmHg (80-100); pH Blood Arterial 7.33 (7.35-7.45)
[2021-04-08 13:52] LABS: Appearance, Urine Hazy (Clear); Color, Urine Yellow (P-Yellow)
[2021-04-08 13:55] LABS: Amorphous Light (0-Heavy); Bacteria Mod /hpf; Red Blood Cells, Urine 0-2 /hpf (0-2); Squamous Epithelial Cells Rare /hpf (Few); White Blood Cells, Urine Rare /hpf (0-5)
--- NOTE | 2021-04-08 15:58 | NUR ---
PT UPDATE.... AT APROX 0815 PT REQUESTED TO USE THE BSC TO HAVE A BM. PER REPORT PT HAD BEEN GETTING UP TO THE BSC YESTERDAY. PT SAT ON THE EDGE OF THE BED, HIS O2 SATS DROPPED DOWN TO THE HIGH 70'S LOW 80'S, PT RECOVERED AFTER A FEW MINS UP TO THE HIGH 80'S LOW 90'S. PT WAS ANXIOUS TO GET TO THE BSC AND SAID HE "FELT GOOD TO GO." PT STOOD WITH MINIMAL ASSIST TO BSC. ONCE THE PT WAS AT THE BSC HIS O2 SATS DROPPED DOWN TO THE LOW 70'S WITH RR IN THE 50'S, PT WAS ON THE AIRVO AT 60l AND 80%FIO2. AIRVO SETTINGS WERE INCREASED TO 60l AND 100% FIO2, PT'S O2 SATS DID NOT RESPOND TO THIS INCREASE, THIS RN CONTINUED TO INCREASE THE AIRVO SETTINGS UNTIL IT WAS MAXED OUT AT 80l AND 100%FIO2. RT WAS CALLED AND CAME TO THE ROOM. THE PT WAS SWITCHED OVER TO CPAP AT 12/100%. THIS STILL DID NOT BRING THE PT'S O2 SATS UP >90%. THE SETTINGS WERE CHANGED TO BIPAP TO 14/12 AND 100%. PT'S O2 SATS STILL REMAINED LESS THAN 90%. WAS NOTIFIED BY CHARGE NURSE INEZ. PT WAS GIVEN 0.5MG ATIVAN IV PUSH, AND A PRECEDEX GTT WAS STARTED WITH THE HOPE OF IMPROVING HIS RR AND O2 SATS. PRECEDEX GTT WAS UP TO 0.7MCG/MIN, PT STILL AWAKE AND HIS RR WAS STILL IN THE 40'S-50'S. THE PT'S WAS CALLED AND PUT ON SPEAKER PHONE, PER OTHER STAFF THIS HAS HELPED THE PT'S ANXIETY IN THE PAST. THIS HELPED THE PT'S RR SLIGHTLY BROUGHT HIM FROM A RESPIRATORY RATE IN THE LOW 50'S TO THE MID-UPPER 40'S HOWEVER HIS O2 SATS WERE STILL LESS THAN 90%. A GREEN LIFT SLING WAS BROUGHT INTO THE ROOM AND USE TO HELP GET THE PT BACK INTO BED, ONCE IN BED THE PT'S RR CONTINUED TO BE IN THE HIGH 40'S. DR. MILLARD CAME INTO THE ROOM AND INTUBATED THE PT AT APROX 0930. PT'S VENTS SETTINGS WERE AC: 16/420/10/100%. PT STARTED TO STACK BREATHS AND FIGHT AGAINST THE VENT. RT MADE SEVERAL CHANGES TO THE VENT SETTINGS BUT PT STILL WOULD NOT BREATH WITH THE VENT. PT WAS ON PROPOFOL AT 50MCG AND PRECEDEX AT 0.4MCG/MIN. NIMBEX WAS STARTED ON THE PT. BIS MONITOR WAS INITIATED, PT'S BIS AT THE TIME WAS IN THE 70'S, PROPOFOL WAS INCREASED TO 65MCG. PT'S BIS THEN WENT INTO THE HIGH 50'S. NIMBEX STARTED AT 2MCG. TEMP AVERY WAS PLACED WELL A RIGHT IJ CENTRAL LINE. PT'S AND FAMILY NOTIFIED. PT WAS STARTED ON LEVOPHED D/T HYPOTENSION WITH MAPS IN THE LOW 50'S. PT IS CURRENTLY ON 3MCG/MIN KEEPING THE MAPS >65. WILL CONTINUE TO MONITOR.
[2021-04-08 16:09] LABS: Base Excess Venous 3.6 mmol/L; PCO2 Venous 82.7 mmHg (38-42); pH Blood Venous 7.19 (7.34-7.37)
[2021-04-08 17:24] LABS: Hematocrit 47.8 % (37.0-53.0); Hemoglobin 15.3 g/dL (13.5-17.5)
--- NOTE | 2021-04-08 19:22 | NUR ---
PT UPDATE... IT WAS NOTED AFTER INTUBATION THE PT HAD A VERY LARGE LEAK AND SOUNDED LIKE HE WAS "SNORING" DR. MILLARD WAS NOTIFIED AFTER RT HAD CHECKED THE PRESSURE OF THE CUFF AND RULLED OUT A POSITIONAL ISSUE. IT WAS ALSO NOTED AT THIS TIME PER THE POST INTUBATION CHEST XRAY THAT THE PT HAD SUBQ EMPHYSEMA AND PNEUMOMEDIASTINUM. THIS RN ASSESSED THE PT AND FOUND CREPITUS ALONG THE LEFT SIDE OF HIS NECK AND ACROSS THE LEFT UPPER CHEST WALL. DR. MILLARD CAME INTO THE ROOM AND USED THE GLIDE SCOPE WITH RT TO REPOSITION THE ET TUBE WHICH STOPPED THE LEAK AND THE "SNORING" SOUND. SUBSEQUENT CHEST XRAY SHOWED IMPROVED PLACEMENT OF THE ET TUBE AND A REDUCTION IN THE PNEUMOMEDIASTINUM. AT 1635 THIS RN AND RT SAIDIE ENTERED THE ROOM TO PROVIDE CARE TO THE PT AND ADJUST THE SETTINGS ON THE VENT. THE RT NOTICED THAT THERE WAS A LARGE AMOUNT OF BLOOD BY THE PT'S HEAD AND TOLD THIS RN. THIS RN ASSESSED THE PT AND SAW A VERY LARGE AMOUNT OF POOLED BLOOD BEHIND THE PT'S HEAD THAT WAS COMING FROM THE RIGHT IJ CENTRAL LINE SITE. THIS RN HELD PRESSURE AND CALLED THE CHARGE NURSE INEZ INTO THE ROOM. THE CHARGE NURSE CALLED DR. MILLARD AND UPDATED HER ON THE BLEEDING. AT 1641 THE PT CONVERTED FROM SR W/BBB AND PVCs INTO AFIB W/RVR IN THE 150'S-160'S, PT WAS GIVEN 5MG METROPROLOL IV PUSH, THIS HELPED TO BRING DOWN THE HEART RATE TO THE 120'S-140'S. PT'S BP STARTED TO DROP AND THE LEVOPHED WAS TITRATED UP TO 13MCG TO KEEP THE MAPS >60. THE BLEEDING AT THE RIGHT IJ SITE WAS STOPPED BY PRESSURE AND A GIULIA DRESSING. THE PT WAS CLEANED UP MUCH POSSIBLE AND THE FAMILY WAS ALLOWED INTO THE ROOM. PT'S FAMILY UPDATED ON THE PT'S VERY SERIOUS CONDITION AND THEY PLAN TO CONTINUE CARE IT IS FOR NOW. PT IS CURRENTLY ON PROPOFOL AT 65MCG, PRECEDEX RUNNING AT 0.4MCG/HR, NIMBEX AT 2MCG AND LEVOPHED AT 13MCG. AT 1810 PT CONVERTED BACK TO SR W/BBB AND PVCs. PER THE PLEASE CALL AT ANY TIME IF THE PT'S CONDITION STARTS TO DETERIORATE. WILL CONTINUE TO MONITOR UNTIL REPORT IS GIVEN TO ONCOMING RN.
--- NOTE | 2021-04-08 22:00 | NUR ---
ASSUMPTION OF CARE PT INTUBATED, SEDATED AND PARALYZED WITH NIMBEX. PROPOFOL AND PRECEDEX INFUSING FOR SEDATIION GOAL OF 40-60 ON THE BIS MONITOR, NIMBEX INFUSING FOR GOAL OF TOF 2/4, LEVO GTT INFUSING TO MAINTAIN BP MAPS> 65, SEE FLOWSHEET FOR RATES AND TITRATIONS. VENT INITIALLY SET TO AC/PC RR 24 PEEP 12 AND FIO2 100%, PTS TV WERE 270-280'S IN REVERSE [place] POSITION, ATTEMPTED ELEVATING HOB TO 30 DEGREES, TV DECREASED TO 220'S AND PEAK PRESSURES INCREASED TO 45-50. RT TO ROOM, DISCUSSED WITH DR MILLARD, VENT SETTINGS CHANGED TO AC/VC 24/330 PEEP 12 FIO2 90%. PT TOLERATED NEW SETTINGS WELL, HOWEVER CONTINUES TO HAVE INCREASED PEAK PRESSURES WHEN HOB IS ELEVATED, HOB MAINTAINED @ 10-15 DEGREES. CREPITOUS NOTED TO THE PTS UPPER STERNAL REGION AND TO BILATERAL ANTERIOR CERVICAL AREA. MONITOR SHOWS SINUS RHYTHM, HR 70'S-80'S, LEVO INFUSING. SKIN IS COOL IN THE EXTREMETIES. AVERY IN PLACE WITH LITTLE OUTPUT. OG IN PLACE AND CLAMPED. CENTRAL LINE TO RIJ, DRESSING CLEAN AND INTACT, NO BLEEDING NOTED AT THIS TIME.
[2021-04-09 05:25] LABS: pH Blood Arterial 7.29 (7.35-7.45)
[2021-04-09 05:59] LABS: Anion Gap 1 mmol/L (6-16); Blood Urea Nitrogen 28 mg/dL (8-24); Bun/Creatinine Ratio 22.2 (12.0-20.0); CO2, Blood 36 mmol/L (21-32); Chloride, Blood 100 mmol/L (98-108); Creatinine, Blood 1.26 mg/dL (0.60-1.20); Glomerular Filtration Rate >60 (60-); Glucose, Blood 131 mg/dL (70-99); Potassium, Blood 4.7 mmol/L (3.5-5.5); Sodium, Blood 137 mmol/L (136-145)
[2021-04-09 06:15] LABS: Vancomycin, Trough 21.5 ug/mL (5.0-10.0)
--- NOTE | 2021-04-09 06:22 | NUR ---
SHIFT SUMMARY PT REMAINS INTUBATED, SEDATED AND PARALYZED ON NIMBEX. PROPOFOL CURRENTLY INFUSING @ 50mcg/kg/min, PRECEDEX @ 0.6mcg/kg/hr, NIMBEX @ 1.5mcg/kg/min. VENT SET TO AC VC 24/330 PEEP 12 FIO2 55%, AM ABG pH AND CO2 LAB RESULTS CALLED TO DR MILLARD, NO NEW ORDERS. MONITOR SHOWS SINUS RHYTHM, HR 70'S-80'S, BP MAPS> 65 WITH LEVO GTT CURRENTLY INFUSING @ 5mcg/min. CENTRAL LINE DRESSING CHAGNED x2 THIS SHIFT, SLOW OOZING FROM INSERTION SITE CONTINUES. HOB INCREASED IN SLOW INCREMENTS THROUGH OUT SHIFT, PT NOW TOLERATING HOB AT 30 DEGREES.
[2021-04-09 08:04] LABS: BASOPHILS ABSOLUTE AUTO 0.02 K/mm3 (0.00-0.23); BASOPHILS PERCENT AUTO 0 % (0-2); EOSINOPHILS ABSOLUTE AUTO 0.92 K/mm3 (0.00-0.68); EOSINOPHILS PERCENT AUTO 8 % (0-6); Hematocrit 42.8 % (37.0-53.0); Hemoglobin 13.7 g/dL (13.5-17.5); IMMATURE GRAN PERCENT AUTO 1 % (0-1); LYMPHOCYTES ABSOLUTE AUTO 1.41 K/mm3 (0.84-5.20); LYMPHOCYTES PERCENT AUTO 12 % (21-46); MONOCYTES ABSOLUTE AUTO 0.54 K/mm3 (0.16-1.47); MONOCYTES PERCENT AUTO 4 % (4-13); Mean Corpuscular HGB 28.7 pg (26.0-34.0); Mean Platelet Volume 11.5 fL (9.1-12.4); NEUTROPHILS ABSOLUTE AUTO 9.31 K/mm3 (1.96-9.15); NEUTROPHILS PERCENT AUTO 76 % (41-73); Platelet Count 205 K/mm3 (150-400); RDW Coefficient Variation 13.9 % (11.7-14.2); RDW Standard Deviation 46.3 fL (35.1-46.3); Red Blood Cell Count 4.78 M/mm3 (4.30-5.90)
[2021-04-09 08:08] LABS: Mean Corpuscular Volume 90 fL (80-100)
--- NOTE | 2021-04-09 08:45 | NUR ---
AM NOTE... ASSUMED CARE OF PT AT 0700. PT IS INTUBATED, SEDATED AND PARALYZED WITH NIMBEX AT 1.5MCG, PROPOFOL AT 50MCG AND PRECEDEX RUNNING AT 0.6MCG/HR. VENT SETTINGS AC/VC: 24/330/12/55% WITH O2 SATS 92%-95%. PT IS IN SR W/BBB IN THE 70'S-80'S. PT WAS ON LEVOPHED AT 5MCG/MIN WITH MAPS>65. BICARB GTT RUNNING AT 50MLS/HR. TOF WAS 4/4, PT LOOKS COMFORTABLE AND BREATHING WITH THE VENT WITH RR OF 24. PUPILS ARE 1MM AND SLUGGISH. ET TUBE IS 7.5 AT 27 AT THE TEETH. DURING ORAL CARE THERE WAS MUKUL RED BLOOD ON THE SWAB. UPON ASSESSMENT THERE IS A SMALL ABRASION ON THE INSIDE OF HIS RIGHT CHEEK THAT IS THE CAUSE OF THE BLEEDING. PT'S RIGHT IJ CENTRAL LINE DRESSING IS CURRENTLY C/D/I, PER ALMA MILLER RN REPORT THE DRESSING HAD TO BE CHANGED 2 TIMES D/T CONTINUED OOZING/BLEEDING. WILL MONITOR THE SITE CLOSELY. L/S CLEAR AND VERY DIM T/O. BT PRESENT AND HYPOACTIVE, ABD IS SOFT TO PALP. THERE IS A HEMATOMA NOTED TO THE PT'S RLQ THE AREA THE AREA HAS SOFTENED FROM YESTERDAY AND THE BRUSED AREA HAS LIGHTENED SOME FROM YESTERDAY. THERE IS NO EDEMA NOTED ON ASSESSMENT. AVERY IS PATENT AND DRAINING CLEAR YELLOW URINE THAT IS A POSTING CLERK COLOR THAN IT WAS YESTERDAY. WILL CONTINUE TO MONITOR.
--- NOTE | 2021-04-09 08:58 | NUR ---
PT UPDATE... LEVOPHED WAS DECREASED FROM 5MCG/MIN TO 3MCG/MIN TO 2MCG/MIN CURRENTLY PT'S MAPS ARE >60. PT'S TEMP AT 0700 THIS AM WAS 99.0 THAT HAS INCREASED TO 100.2 PT CURRENTLY ONLY HAS A SHEET ON. WILL CONTINUE TO MONITOR.
--- NOTE | 2021-04-09 12:26 | NUR ---
PT UPDATE.... AT 0940 NIMBEX WAS TITRATED FROM 1.5MCG TO 1MCG. AT APROX 1045 PT'S RR INCREASED FROM 24 TO 27-30, PEAKPRESSURES INCREASED FROM 32-40 TO 38-43. DR. MILLARD NOTIFIED, SHE CAME AND ASSESSED THE PT, PT WAS GIVEN 50CMG OF FENTANYL WHICH DECREASED HIS RR BACK DOWN TO 24-25. WILL CONTINUE TO MONITOR.
--- NOTE | 2021-04-09 14:33 | NUR ---
PT UPDATE... PT STARTED ON TRICKLE FEEDS AT 10MLS/HR WITH 30MLS H2O FLUSHES Q4HRS UNTIL DIETARY CAN ASSESS THE PT'S NEEDS. 50MCG FENTANYL IV PUSHES Q1HR HAVE BEEN GIVEN TO HELP REDUCE THE PEAK PRESSURES FROM 40-44 TO 34-38. AND RESPIRATORY RATES FROM THE 30'S TO 24-26. PT'S IN THE ROOM FOR VISITING HOURS, SHE WAS GIVEN ANOTHER UPDATE BY THIS RN. NO BLEEDING HAS BEEN NOTED AT THE RIGHT IJ SITE THIS SHIFT SO FAR. CALL LIGHT IN REACH WILL CONTINUE TO MONITOR.
--- NOTE | 2021-04-09 18:14 | NUR ---
SHIFT SUMMARY... AT 1545 THIS RN AND RT CHARLIEIE BOOSTED THE PT IN BED, THE PT'S PEAK PRESSURES INCREASED FROM 36-38 TO 41-47 AND THE PT'S BP DROPPED TO 72/54, THE LEVOPHED WAS INCREASED FROM 6MCG/MIN TO 8MCG/MIN AND PT WAS GIVEN 50MCG FENTANYL IV PUSH, THIS HELPED TO REDUCE THE PT'S PEAK PRESSURES SLIGHTLY TO 41-44. THE PT'S HEAD OF HIS BED WAS LOWERED FROM APROX 30 DEGREES TO 15 DEGRESS, THIS ALSO HELPED REDUCE THE PT'S PEAK PRESSURES TO 35-39. PT'S TEMP HAS SLOWLY INCREASED T/O THE SHIFT, IT IS CURRENTLY 101.1, PT WAS MEDICATED WITH TYLENOL x2 THIS SHIFT PER EMAR WITH NO REDUCTION IN THE PT'S TEMP. PT'S EXTREMITIES ARE COOL TO THE TOUCH, THE PT'S NECK, BACK AND CHEST ARE DIAPHORETIC. PT IS CURRENTLY ON NIMBEX AT 1MCG, PROPOFOL 35MCG, PRECEDEX 0.6MCG/HR, LEVOPHED 8MCG WITH MAPS >60. SODIUM BICARB GTT RUNNING AT 50MLS/HR. PT'S TUBE FEED IS RUNNING AT 10MLS/HR WITH 30MLS H2O FLUSHES Q4. PT'S AVERY IS PATENT AND DRAINING CLEAR DARK YELLOW URINE. PT'S VENT SETTINGS ARE AC/VC 24/330/12/60% WITH O2 SATS 90%-94%, RR 24-28. PT HAS HAD A VERY MINIMAL AMOUNT OF THICK CLEAR SECRETIONS NOTED WITH SUCTIONING FROM THE ET TUBE. PT'S AT THE BEDSIDE DURING VISITING HOURS, SHE WAS UPDATED AGAIN ON PT'S CONDITION. COMFORT CARE WAS BROUGHT UP BY THE BUT SHE STATED THAT SHE FELT HE NEEDED "A BIT MORE TIME BEFORE WE MAKE THAT DECISION, BUT I KNOW HE WOULD NOT WANT TO BE DOING THIS FOR A LONG TIME." WILL CONTINUE TO MONITOR UNTIL REPORT IS GIVEN TO ONCOMING RN.
--- NOTE | 2021-04-09 19:01 | NUR ---
PT UPDATE... THIS RN ENTERED THE ROOM D/T THE BIS MONITOR NOT WORKING ANY MORE, UPON ASSESSMENT THE PT HAD BECOME VERY DIAPHORETIC AND IT WAS NOTED THAT THE PT HAD INCREASED SWELLING IN HIS NECK AND UPPER CHEST AREA. PT'S NECK IS FIRM TO PALPATION. CREPITUS WAS NOTED TO HIS RIGHT AND LEFT NECK, RIGHT AND LEFT CHEST WALL DOWN HIS CHEST TO ALMOST HIS NIPPLES, INTO HIS BILATERAL AXILARIES, DOWN HIS LEFT ARM TO HIS ELBOW. CHARGE NURSE NOTIFIED ALONG WITH DR. MILLARD, STAT CHEST XRAY ORDERED. PT'S VENT SETTINGS AT THIS TIME ARE AC/VC:24/330/12/60%, PEAK PRESSURES 40-41 O2 SATS 95% RR 28. BEDSIDE REPORT GIVEN TO DANDRE JAIN.
--- NOTE | 2021-04-09 19:30 | NUR ---
ASSUMPTION OF CARE BEDSIDE REPORT FROM YANCY JAIN. PT IS INTUBATED, SEDATED AND REMAINS ON NIMBEX, SEE FLOWSHEET FOR RATES AND TITRATIONS. VENT SET TO AC VC 24/330 PEEP 12 FIO2 60%, PT BREATHING OVER VENT 28-29 RESPIRATIONS/MIN, PEAK PRESSURES 40, CREPITOUS TO UPPER STERNAL AREA THAT SPREADS TO R CERVICAL AND UPPER ARM AND L CERVIAL TO L UPPER BACK AND DOWN L ARM TO ELBOW. NECK AND FACE WITH NOTABLE SWELLING WORSE ON THE RIGHT SIDE. REED SOUNDS VERY DIMINISHED THROUGH OUT. MONITOR SHOWS SINUS RHYTHM WITH HR 70'S, LEVO GTT INFUSING AT 8mcg/min. BLE VERY COOL, FAINT PULSES, PURPLE AREA NOTED TO BILAT HEELS, BLANCHABLE, HEELS FLOATED ON PILLOWS. SKIN THE BLE PALE AND DUSKY COMPARED TO UPPER BODY WHICH IS FLUSHED/PINK AND DIAPHORETIC. TEMP PROBE AVERY IN PLACE. OG IN PLACE WITH TRICKLE FEED AT 10ml/hr. BIS MONITOR READING 30'S-40'S.
--- NOTE | 2021-04-09 20:35 | NUR ---
DR MILLARD TO BEDSIDE, PEEP DECREASED TO 10, RT JESSEE NOTIFIED.
--- NOTE | 2021-04-09 20:52 | NUR ---
PT ASYNCHRONOUS WITH THE VENT, PER DR MILLARD CONTINUE LOW DOSE NIMBEX FOR VENT SYNCHRONY AND PRN FENTANYL PUSHES FOR ADJUNCT TO SEDATION.
[2021-04-10 05:36] LABS: PCO2 Arterial 62.4 mmHg (35-45); PO2 Arterial 63.5 mmHg (80-100); pH Blood Arterial 7.39 (7.35-7.45)
[2021-04-10 05:49] LABS: BASOPHILS ABSOLUTE AUTO 0.02 K/mm3 (0.00-0.23); BASOPHILS PERCENT AUTO 0 % (0-2); EOSINOPHILS ABSOLUTE AUTO 0.23 K/mm3 (0.00-0.68); EOSINOPHILS PERCENT AUTO 2 % (0-6); Hematocrit 39.8 % (37.0-53.0); Hemoglobin 12.7 g/dL (13.5-17.5); IMMATURE GRAN ABSOLUTE AUTO 0.14 K/mm3 (0.00-0.10); IMMATURE GRAN PERCENT AUTO 1 % (0-1); LYMPHOCYTES ABSOLUTE AUTO 1.02 K/mm3 (0.84-5.20); LYMPHOCYTES PERCENT AUTO 10 % (21-46); MONOCYTES ABSOLUTE AUTO 0.33 K/mm3 (0.16-1.47); MONOCYTES PERCENT AUTO 3 % (4-13); Mean Corpuscular HGB 28.3 pg (26.0-34.0); Mean Corpuscular HGB Conc 31.9 g/dL (31.5-36.5); Mean Corpuscular Volume 89 fL (80-100); Mean Platelet Volume 10.9 fL (9.1-12.4); NEUTROPHILS ABSOLUTE AUTO 8.44 K/mm3 (1.96-9.15); NEUTROPHILS PERCENT AUTO 83 % (41-73); Platelet Count 159 K/mm3 (150-400); RDW Coefficient Variation 13.4 % (11.7-14.2); RDW Standard Deviation 44.2 fL (35.1-46.3); Red Blood Cell Count 4.48 M/mm3 (4.30-5.90); White Blood Cell Count 10.18 K/mm3 (4.00-11.30)
[2021-04-10 06:10] LABS: Anion Gap 3 mmol/L (6-16); Blood Urea Nitrogen 15 mg/dL (8-24); Bun/Creatinine Ratio 16.8 (12.0-20.0); CO2, Blood 35 mmol/L (21-32); Calcium, Blood 7.6 mg/dL (8.5-10.1); Chloride, Blood 96 mmol/L (98-108); Creatinine, Blood 0.89 mg/dL (0.60-1.20); Glomerular Filtration Rate >60 (60-); Glucose, Blood 149 mg/dL (70-99); Potassium, Blood 4.9 mmol/L (3.5-5.5); Sodium, Blood 134 mmol/L (136-145); Vancomycin, Trough 11.2 ug/mL (5.0-10.0)
--- NOTE | 2021-04-10 06:30 | NUR ---
SHIFT SUMMARY PT REMAINS INTUBATED, SEDATED AND PARALYZED. VENT SET TO AC/VC 24/330 PEEP DECREASED TO 8 THIS SHIFT FIO2 REMAINS AT 60%, PROPOFOL INFUSING AT 35 AND PRECEDEX AT 0.5 FOR GOAL BIS MONITOR READING 40-60, SEE FLOWSHEET FOR TITRATIONS AND BIS MONITOR READINGS. NIMBEX INFUSING AT 1.5 TO MAINTAIN PT SYNCHRONY WITH THE VENT, NO GAG, COUGH REFLEX PRESENT, PT RIDING THE VENT AT 24 RESPIRATIONS PER MINUTE, NO EVIDENCE OF MOVEMENT FROM PT AND REMAINS OUT OF RESTRAINTS SINCE 2199. CREPITOUS REMAINS BUT IS OVER ALL IMPROVED, SWELLING TO NECK AND FACE IMPROVED. MONITOR SHOWS SINUS RHYTHM, HR 70'S-80'S, ONE EPISODE OF TACHYCARDIA THIS SHIFT WITH HR REACHING 128, EKG DONE SHOWING SINUS TACH, HR DECREASED TO NORMAL LIMITS ON OWN. LEVO GTT TURNED OFF THIS SHIFT, BP THIS AM SOFT BUT MAPS REMAIN> 65. BLE REMAIN COOL AND PALE, PULSES PRESENT. DIAPHORESIS RESOLVED THIS SHIFT. AVERY REMAINS IN PLACE WITH GOOD URINE OUTPUT. OG IN PLACE WITH TF @ 10ml/hr.
--- NOTE | 2021-04-10 09:25 | NUR ---
AM NOTE... ASSUMED CARE OF PT AT 0700. PT IS INTUBATED, SEDATED AND PARALYZED WITH NIMBEX AT 1.5MCG TOF IS 4/4. PROPOFOL RUNNING AT 35MCG AND PRECEDEX RUNNING AT 0.3MCG/HR. PT'S BIS MONITOR IS RUNNING IN THE 40'S-50'S. VENT SETTINGS ARE AC/VC: 24/330/8/65% WITH O2 SATS 90-93%. L/S CLEAR AND VERY DIM T/O. SCANT AMOUNT OF THICK CLEAR SECRETIONS WITH ET SUCTIONING. SMALL AMOUNT OF ORAL SECRETIONS NOTED THIS AM WELL. PT'S ET TUBE IS 7.5 AND 27 AT THE LIPS. PT IS IN SR W/BBB IN THE 70-80'S, BP STABLE WITH MAPS >65, PT HAS BEEN OFF OF LEVOPHED SINCE 0 LAST NIGHT. PT HAS DEPENDENT EDEMA TO HIS HANDS/FINGERS. BT PRESENT AND HYPOACTIVE, ABD HAS MILD DISTENTION, THIS IS NEW FROM YESTERDAY. PT STILL HAS SCATTERED BRUISES NOTED ON HIS ABD FROM THE LOVENOX SHOTS. PT'S OG TUBE HAS TUBE FEED RUNNING AT 10MLS/HR. PT HAD 40MLS OF RESIDUAL THIS AM PRIOR TO PT MEDS. AVERY IS PATENT AND DRAINING CLEAR DARK YELLOW URINE TO GRAVITY. WILL CONTINUE TO MONITOR.
--- NOTE | 2021-04-10 09:34 | NUR ---
PT UPDATE... WHILE THIS RN WAS IN THE ROOM DURING ASSESSMENT THERE WAS A NOTED CUFF LEAK WITH THE ET TUBE, RT WAS CALLED AND THEY GAVE THIS RN THE OKAY TO INFLATE 1CC OF AIR INTO THE CUFF TO SEE IF THAT WOULD SOLVE THE LEAK, THIS DID NOT HELP THE LEAK SO THE RT SAIDIE CAME INTO THE ROOM. SHE ADDED MORE AIR AND REPOSITIONED, NONE OF THESE INTERVENTIONS HELPED. WHILE THE RT WAS IN THE ROOM THIS RN TRIALED THE PT WITH THE NIMBEX OFF. WHENT HE NIMBEX WORE OFF THE PT'S RR INCREASED FROM 24 TO THE 30'S, PT WAS BREATHING WITH THE VENT BUT STARTED TO "BELLY BREATHING" AND RR BECAME UNEVEN, PT'S O2 SATS DROPPED DOWN TO 87-88%. THE PROPOFOL AND PRECEDEX WERE INCREASED TO TRY AND PREVENT RESTARTING THE NIMBEX HOWEVER THIS DID NOT HELP. NIMBEX WAS RESTARTED AT 2MCG AND EVENTUALLY TITRATED DOWN TO 1MCG. CREPITUS WAS NOTED ON ASSESSMENT TO THE PT'S BILATERAL UPPER CHEST, UP HIS LEFT NECK, AND DOWN HIS LEFT ARM, THIS WELL THE SWELLING IN HIS NECK AND UPPER CHEST IS IMPROVED FROM LAST NIGHT. WILL CONTINUE TO MONITOR.
--- NOTE | 2021-04-10 11:12 | NUR ---
PT UPDATE... ATTEMPTTED TO DECREASE THE NIMBEX AGAIN FROM 1MCG TO 0.5MCG PT WAS GIVEN 50MCG OF IV FENTANYL AND PRECEDEX WAS INCREASED BUT THE PT STARTED TO "GUPPY" BREATH WITH THE VENT, HIS O2 SATS WENT FROM 92-94% TO 88-90%. RT CALLED INTO THE ROOM. NIMBEX INCREASED BACK UP TO 1MCG. WILL CONTINUE TO MONITOR.
--- NOTE | 2021-04-10 12:50 | NUR ---
PT UDPATE... PT'S TUBE FEED CHANGED FROM VITAL HP TO PIVOT 1.5 PER ORDERS. PT'S 1200 CBG WAS 137. AT 1130 PT'S TUBE FEED INCREASED FROM 10MLS/HR TO 25MLS/HR PER ORDERS. WILL SLOWLY INCREASE RATE AND CHECK RESIDUALS D/T THE PT BEING ON NIMBEX.
--- NOTE | 2021-04-10 15:23 | NUR ---
PT UPDATE.... PT'S AT THE BEDSIDE, SHE WAS GIVEN AN UPDATE BY THIS. DR. SMITH PLANS TO HAVE A FAMILY CONFRENCE WITH THE AND THE PT'S ADULT CHILDREN. MAGALY Hidalgo RN WITH PALLIATIVE CARE NOTIFIED OF THE FAMILY MEETING PLANNED FOR APROX 1530 TODAY. A PRIVATE ROOM WAS MADE AVAILABLE FOR THE FAMILY TO SPEAK WITH DR. SMITH.
--- NOTE | 2021-04-10 16:35 | NUR ---
Pal Care visit - Family conference held per Dr Shukla with pt's , masood, two sons, [place], dil present after reviewing current and past CXR images with family. Group met with outside of ICU at their request to review current status, concerns, and to answer family questions. Family met after, amongst themselves to further discuss what they believe pt would want and what family would like at this time. gave full update on challenges and worsening lung condition due to covid pneumonia and underlying chronic ILD. Family verbalized a good understanding of the information shared with them and stated they felt their questions were answered. Pt's will let us know how they would like to proceed once that is decided upon. Pal Care to remain available for support.
--- NOTE | 2021-04-10 17:15 | NUR ---
Update received from pt's RN that family has decided upon comfort as goal of care. putting in orders and family gathered at bedside. Update given to our Certified Medical Assistant who will also visit for support.
--- NOTE | 2021-04-10 17:26 | NUR ---
Spiritual care note: Asked to meet with this tisha family to provide anticipatory bereavement intellectual property counsel and prayer. Family tearful, but appropriate. Facilitated life review and expressions of gratitude to good effect. states, "He's ready." Family reports peace with POC and gratitude for compassionate care by ICU team. I will remain available.
--- NOTE | 2021-04-10 17:52 | NUR ---
pt update... PT WAS MADE COMFORT CARE BY THE FAMILY AT APROX 1650. COMFORT MEASURES STARTED BY THIS RN. BLAKE BARRY NOTIFIED AND CAME TO THE ROOM FOR THE FAMILY AND THE PT.
--- NOTE | 2021-04-10 19:31 | NUR ---
PT .... AT 1855 PT WITH HIS FAMILY AT THE BEDSIDE. THIS RN CALLED TIME OF AFTER ASSESSING THE PT AND FOUND/HEARD NO PULSE. DR. SMITH NOTIFIED, NURSING ENVIRONMENTAL HEALTH OFFICER NOTIFIED WELL. PT'S FAMILY GIVEN A LIST OF HOMES TO HELP THEM DECIDE WHERE TO SEND THE PT TO BE CREMATED.
--- NOTE | 2021-04-10 20:56 | NUR ---
PATIENTS FAMILY HOME WITH PATIENTS BELONGINGS GOING HOME WITH [place]. POST MORTEM CARE DONE VAERY CATH REMOVED, CENTRAL LINE AND POWER GLIDE LEFT IN PLACE. CALL PLACED TO [facility] PER FAMILY REQUEST.
--- NOTE | 2021-04-12 16:16 | NUR ---
LATE ENTRY 04/04/[address] NG NOTIFIED OF PT'S OXYGEN SATURATION OF 88-91% ON 10L AND 55% VENTI MASK. DR. NG ORDERED IV LASIX AND THIS RN ADMINISTERED AT THIS TIME. WILL CONTINUE TO MONITOR.
--- NOTE | 2021-04-12 16:19 | NUR ---
LATE ENTRY 04/04/21 1726 THIS RN [address]CUSSED WITH DR. NG THAT PT CONTINUES TO HAVE LOW OXYGEN SATURATION WHILE ON 10L AND 55% VENTI MASK AND RECEIVED IV LASIX EARLIER ORDERED. NEW ORDERS FOR CHEST XRAY TO BE DONE. WILL MONITOR.
--- NOTE | 2021-04-12 16:48 | NUR ---
LATE ENTRY 04/04/21 1105 THIS RN TALKED WITH DR. NG THAT PT STILL HAVING LOW OXYGEN SATURATION, 87-89% ON 10L AND 55% VENTIMASK AND WORKING REALLY HARD TO BREATH. PT HAS NOT HAD MUCH CHANGES WITH BREATHING/OXYGEN SATURATION SINCE RECIEVING IV LASIX. DR. NG WANTING PT TO BE TRANSFERRED TO PCU. SUPPLY TECHNICIAN AWARE. WILL CONTINUE TO MONITOR. CALL LIGHT IN REACH.
== END 2021-04-10 18:55 | DRG 208 ==
LOC: ER 17:04 → PCU 20:01 → ERHOLD 20:01 → MEDS 20:01 → ICUW 20:01 → MEDS 21:35 → ENPENDDIS 03-24 10:36 → DELPENDDIS 03-24 10:36 → MEDS 03-26 11:15 → PCU 04-04 13:05 → ICUW 04-05 12:14
PROVIDERS: Internal Medicine; Internal Medicine Critical Care Medicine; Internal Medicine Pulmonary Disease; Physician Assistant; ADMIT Family Medicine
PROC: 8E0ZXY6 Isolation (ICD-10-PCS; principal; 2021-03-20)
PROC: 3E0333Z Introduction of Anti-inflammatory into Peripheral Vein, Percutaneous Approach (ICD-10-PCS; 2021-03-20)
PROC: XW033E5 Introduction of Remdesivir Anti-infective into Peripheral Vein, Percutaneous Approach, New Technology Group 5 (ICD-10-PCS; 2021-03-20)
PROC: 3E03329 Introduction of Other Anti-infective into Peripheral Vein, Percutaneous Approach (ICD-10-PCS; 2021-04-05)
PROC: 5A1945Z Respiratory Ventilation, 24-96 Consecutive Hours (ICD-10-PCS; 2021-04-08)
PROC: 5A09357 Assistance with Respiratory Ventilation, Less than 24 Consecutive Hours, Continuous Positive Airway Pressure (ICD-10-PCS; 2021-04-08)
PROC: 0BH17EZ Insertion of Endotracheal Airway into Trachea, Via Natural or Artificial Opening (ICD-10-PCS; 2021-04-08)
PROC: 05HM33Z Insertion of Infusion Device into Right Internal Jugular Vein, Percutaneous Approach (ICD-10-PCS; 2021-04-08)
PROC: 3E043XZ Introduction of Vasopressor into Central Vein, Percutaneous Approach (ICD-10-PCS; 2021-04-08)
DX: U07.1 COVID-19 (principal); J12.82 Pneumonia due to coronavirus disease 2019; J80 Acute respiratory distress syndrome; J93.9 Pneumothorax, unspecified; J84.9 Interstitial pulmonary disease, unspecified; N17.9 Acute kidney failure, unspecified; I45.2 Bifascicular block; I25.10 Atherosclerotic heart disease of native coronary artery without angina pectoris; J98.2 Interstitial emphysema; Z51.5 Encounter for palliative care; Z66 Do not resuscitate; J84.10 Pulmonary fibrosis, unspecified; K21.9 Gastro-esophageal reflux disease without esophagitis; Z98.890 Other specified postprocedural states; Z88.8 Allergy status to other drugs, medicaments and biological substances; Z79.82 Long term (current) use of aspirin; Z79.899 Other long term (current) drug therapy; Z86.73 Personal history of transient ischemic attack (TIA), and cerebral infarction without residual deficits; Z87.891 Personal history of nicotine dependence; Z88.5 Allergy status to narcotic agent; Z88.6 Allergy status to analgesic agent
CPT/HCPCS: 31500; 36415; 36556; 36600; 51702; 71045; 80048; 80053; 80202; 81001; 82803; 82947; 83735; 83880; 84100; 84478; 84484; 85014; 85018; 85025; 85027; 85651; 86140; 86769; 87040; 87086; 93005; 93010; 93306; 94002; 94003; 94640; 94660; 94664; 94760; 94761; 94762; 96372-59; 96374; 96375; 97110; 97116; 97161; 97530; 99285-25; A9270; C1751; C9113; J1100; J1650; J1940; J2060; J2270; J2370; J2543; J2704; J3010; J3262; J3370; J7050; J7060; J7070